=== PATIENT | female | born 1965 | race Caucasian/White ===

== ENCOUNTER 2021-10-29 10:47 | Emergency (ER) | payer SELFPAY ==
[2021-10-29 13:16] LABS: Urine Blood 3+ (Negative); Urine Glucose Negative (Negative); Urine Protein 1+ (Negative); Urine Specific Gravity >=1.030 (1.005-1.030)
[2021-10-29 16:18] LABS: Absolute Lymphocytes (CBC) 1.5 K/uL (0.7-4.9); Hematocrit 47.1 % (36.0-45.0); Lymphocytes % 25.4 % (15.3-44.8); RBC Red Blood Cell Count 5.33 M/uL (3.86-4.86)
[2021-10-29 16:26] LABS: BUN Blood Urea Nitrogen 12 mg/dL (7-18); Bicarbonate 27 mmol/L (21-32); Glucose Level 108 mg/dL (74-106); Potassium 3.4 mmol/L (3.5-5.1); Sodium Level 139 mmol/L (136-145)
[2021-10-29 16:31] LABS: SARS-COV-2 RT PCR POSITIVE (NEGATIVE)
--- NOTE | 2021-10-29 16:46 | ER ---
Nurse's Notes [facility] Name: Aleah Cassidy Age: 56 yrs Sex: Female : 1965 Arrival Date: 10/29/2021 Time: 10:49 Bed 10 Private MD: Diagnosis: Weakness;SARS-associated coronavirus as the cause of diseases classified elsewhere;Myalgia;Arthralgia;Confusion Presentation: 10/29 11:04 Chief complaint: Patient states: "Im not feeling well, haven't felt right or a little jh5 while. Im really weak, sore, and not thinking straight for the past several days". Coronavirus screen: Vaccine status: Patient reports being unvaccinated. Client denies travel out of the [place] in the last 14 days. Client presents with at least one sign or symptom that may indicate coronavirus-19. Standard/surgical mask placed on the client. Ebola Screen: Patient negative for fever greater than or equal to 101.5 degrees Fahrenheit, and additional compatible Ebola Virus Disease symptoms Patient denies exposure to infectious person. Patient denies travel to an Ebola-affected area in the 21 days before illness onset. No acute neurological deficit is noted. Pre-hospital glucose is not applicable to this patient. Initial Sepsis Screen: Does the patient meet any 2 criteria? No. Patient's initial sepsis screen is negative. Does the patient have a suspected source of infection? No. Patient's initial sepsis screen is negative. Risk Assessment: Do you want to hurt yourself or someone else? Patient reports no desire to harm self or others. Onset of symptoms was October 2021. 11:04 Method Of Arrival: Ambulatory [facility] 11:04 Acuity: AMIRAH 3 5 Triage Assessment: 11:08 The onset of the patients symptoms was. General: Appears in no apparent distress. jh5 comfortable, obese, well groomed, well developed, well nourished, Behavior is calm, cooperative, appropriate for age. Pain:. Neuro: No deficits noted. Reports weakness. 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 - Social history:: Smoking status: Patient reports the use of cigarette tobacco products, smokes one pack cigarettes per day. Patient uses alcohol, occasionally. Patient uses street drugs, marijuana. Screenin:35 Abuse screen: Denies threats or abuse. Denies injuries from another. Nutritional [facility] screening: No deficits noted. Tuberculosis screening: No symptoms or risk factors identified. Fall Risk None identified. Assessment: 11:35 Reassessment: Patient appears in no apparent distress at this time. see triage. [facility] 13:17 General: Appears in no apparent distress. Behavior is anxious. Neuro: Level of iw Consciousness is awake, alert, obeys commands, Oriented to person, place, time, situation, Moves all extremities. Full function. 16:43 Reassessment: Patient appears in no apparent distress at this time. Patient and/or iw family updated on plan of care and expected duration. Pain level reassessed. Patient is alert, oriented x 3, equal unlabored respirations, skin warm/dry/pink. Vital Signs: 11:04 BP 126 / 99; Pulse 101; Resp 16; Temp 98.3; Pulse Ox 99% ; Weight 83.91 kg; Height 5 [facility] ft. 5 in. (165.10 cm); 11:04 Body Mass Index 30.79 (83.91 kg, 165.10 cm) [facility] ED Course: 10:49 Patient arrived in ED. mr 11:08 Triage completed. [facility] 11:08 Arm band placed on right wrist. [facility] 11:35 Patient has correct armband on for positive identification. Bed in low position. Call [facility] light in reach. Side rails up X 1. 11:35 No provider procedures requiring assistance completed. [facility] 11:36 Ramiro Ward MD is Attending Physician. kdr 12:13 Rosmery Holt, RN is Primary Nurse. 16:08 Chem 7 Sent. 5 16:09 CBC with Diff Sent. 5 16:09 Initial lab(s) drawn, by nc, sent to lab. [facility] 17:00 Patient did not have IV access during this emergency room visit. Administered Medications: No medications were administered Outcome: 16:45 Discharge ordered by . kdr 17:01 Discharged to home ambulatory. iw 17:01 Condition: good 17:01 Discharge instructions given to patient, Instructed on discharge instructions, follow up and referral plans. Demonstrated understanding of instructions, follow-up care. 17:02 Patient left the ED. Signatures: Ramiro Ward MD MD [facility] Charlotte Win Irene, RN RN Pascale Luna [facility] Jolynn Jaquez RN RN jh5
--- NOTE | 2021-10-29 16:46 | EDPHYS ---
Physician Documentation [facility] Name: Aleah Cassidy Age: 56 yrs Sex: Female : 1965 Arrival Date: 10/29/2021 Time: 10:49 Bed 10 Private MD: ED Physician Ramiro Ward HPI: 10/29 17:04 This 56 yrs old Female presents to ER via Ambulatory with complaints of Weakness, Body kdr Aches. 17:05 Complains of generalized weakness aches and confusion over the last couple of weeks. kdr She feels like she is getting steadily worse over that period of time. She denies fever, chills or vomiting, she has had occasional nausea. She otherwise has no focal complaints. She denies known exposure to COVID. Onset: The symptoms/episode began/occurred gradually, 2 week(s) ago. Severity of symptoms: At their worst the symptoms were moderate just prior to arrival, today. The patient has not experienced similar symptoms in the past. The patient has not recently seen a physician. 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 - Social history:: Smoking status: Patient reports the use of cigarette tobacco products, smokes one pack cigarettes per day. Patient uses alcohol, occasionally. Patient uses street drugs, marijuana. ROS: 17:05 Constitutional: Negative for fever, chills, and weight loss, Eyes: Negative for injury, kdr pain, redness, and discharge, Neck: Negative for injury, pain, and swelling, Cardiovascular: Negative for chest pain, palpitations, and edema, Respiratory: Negative for shortness of breath, cough, wheezing, and pleuritic chest pain, Abdomen/GI: Negative for abdominal pain, nausea, vomiting, diarrhea, and constipation, Back: Negative for injury and pain, : Negative for injury, bleeding, discharge, and swelling, Skin: Negative for injury, rash, and discoloration, Psych: Negative for depression, anxiety, suicide ideation, homicidal ideation, and hallucinations, Allergy/Immunology: Negative for hives, rash, and allergies, Endocrine: Negative for neck swelling, polydipsia, polyuria, polyphagia, and marked weight changes, Hematologic/Lymphatic: Negative for swollen nodes, abnormal bleeding, and unusual bruising. 17:05 MS/extremity: Positive for erythema, pain, Negative for abrasion, bite, contusion, decreased range of motion, deformity, ecchymosis, erythema, pain, puncture, rash, swelling, tenderness. Exam: 17:05 Constitutional: This is a well developed, well nourished patient who is awake, alert, kdr and in no acute distress. Head/Face: Normocephalic, atraumatic. Eyes: Pupils equal round and reactive to light, extra-ocular motions intact. Lids and lashes normal. Conjunctiva and sclera are non-icteric and not injected. Cornea within normal limits. Periorbital areas with no swelling, redness, or edema. Neck: Trachea midline, no thyromegaly or masses palpated, and no cervical lymphadenopathy. Supple, full range of motion without nuchal rigidity, or vertebral point tenderness. No Meningismus. Chest/axilla: Normal chest wall appearance and motion. Nontender with no deformity. No lesions are appreciated. Cardiovascular: Regular rate and rhythm with a normal S1 and S2. No gallops, murmurs, or rubs. Normal PMI, no JVD. No pulse deficits. Respiratory: Lungs have equal breath sounds bilaterally, clear to auscultation and percussion. No rales, rhonchi or wheezes noted. No increased work of breathing, no retractions or nasal flaring. Back: No spinal tenderness. No costovertebral tenderness. Full range of motion. Skin: Warm, dry with normal turgor. Normal color with no rashes, no lesions, and no evidence of cellulitis. MS/ Extremity: Pulses equal, no cyanosis. Neurovascular intact. Full, normal range of motion. Neuro: Awake and alert, GCS 15, oriented to person, place, time, and situation. Cranial nerves II-XII grossly intact. Motor strength 5/5 in all extremities. Sensory grossly intact. Cerebellar exam normal. Normal gait. Psych: Awake, alert, with orientation to person, place and time. Behavior, mood, and affect are within normal limits. 17:05 Abdomen/GI: Inspection: abdomen appears normal, Bowel sounds: active, Palpation: soft, nontender, Minimal to no tenderness. Vital Signs: 11:04 BP 126 / 99; Pulse 101; Resp 16; Temp 98.3; Pulse Ox 99% ; Weight 83.91 kg; Height 5 [facility] ft. 5 in. (165.10 cm); 11:04 Body Mass Index 30.79 (83.91 kg, 165.10 cm) [facility] MDM: 16:45 Patient medically screened. kdr 17:09 Data reviewed: vital signs, nurses notes, lab test result(s), EKG, radiologic studies. kdr 10/29 11:39 Order name: COVID-19/FLU A+B (Document "Date of Onset" if Symptomatic); Complete Time: [facility] 16:35 10/29 11:13 Order name: Urine Dipstick-Ancillary (obtain specimen); Complete Time: 11:35 [facility] 10/29 13:16 Order name: Urine Dipstick-Ancillary; Complete Time: 14:05 EDMS 10/29 14:05 Interpretation: The patient is on her menstrual cycle, trace ketones and 1+ protein. kdr Otherwise nonacute. 10/29 15:57 Order name: CBC with Diff; Complete Time: 16:23 kdr 10/29 15:57 Order name: Chem 7; Complete Time: 16:28 kdr Administered Medications: No medications were administered Disposition Summary: 10/29/21 16:45 Discharge Ordered Location: Home kdr Problem: an ongoing problem kdr Symptoms: are unchanged kdr Condition: Stable kdr Diagnosis - Weakness kdr - SARS-associated coronavirus as the cause of diseases classified elsewhere kdr - Myalgia kdr - Arthralgia kdr - Confusion kdr Followup: kdr - With: Private Physician - When: 2 - 3 days - Reason: If symptoms return, Further diagnostic work-up, Recheck today's complaints, Continuance of care, Re-evaluation by your physician Discharge Instructions: - Discharge Summary Sheet kdr - Musculoskeletal Pain kdr - Muscle Pain, Adult kdr - Fatigue kdr - Weakness, [id number] kdr - COVID-19 kdr - Things to Know about the COVID-19 Pandemic - [facility] kdr - 10 Things You Can Do to Manage Your COVID-19 Symptoms at Home - [facility] kdr - Viral Illness, Adult kdr - COVID-19: Quarantine vs. Isolation - [facility] kdr - Prevent the Spread of COVID-19 if You Are Sick - [facility] kdr Forms: - Medication Reconciliation Form kdr - Thank You Letter kdr Signatures: Dispatcher [employer] EDMS Rittger, Ramiro, MD MD kdr Leonid, Jolynn, RN RN jh5
[2021-10-29 17:42] VITALS: BP 126/99; TEMP 98.3; O2SAT 99
== END 2021-10-29 17:02 | disposition home or self-care (01) ==
LOC: ER 10:47
DX: U07.1 COVID-19 (principal); M79.10 Myalgia, unspecified site; M25.50 Pain in unspecified joint; R41.0 Disorientation, unspecified; F17.210 Nicotine dependence, cigarettes, uncomplicated
CPT/HCPCS: 0240U; 36415; 80048; 81003; 85025; 99283

== ENCOUNTER 2021-11-21 12:47 | Emergency (ER) | payer OTHER, SELFPAY ==
--- OUTSIDE RECORDS SUMMARY | 2021-11-21 12:50 | XMS REPORT | Continuity of Care Document ---
:1965 Author Organization [facility] t Address [address] [place] [address] Dr. Farias [address] [place] [id number] Care Team Providers Name Role Phone Unavailable Unavailable Unavailable Problems This patient has no known problems. Allergies, Adverse Reactions, Alerts This patient has no known allergies or adverse reactions. Medications This patient has no known medications. Procedures This patient has no known procedures. Results This patient has no known results.
[2021-11-21 14:42] LABS: Urine Blood Trace-intact (Negative); Urine Glucose Negative (Negative); Urine Protein 1+ (Negative); Urine Specific Gravity 1.025 (1.005-1.030); Urine pH 6.5 (5.0-7.0)
[2021-11-21 15:06] LABS: Hematocrit 45.5 % (36.0-45.0); Lymphocytes % 18.2 % (15.3-44.8); MPV 8.9 fL (7.6-11.3); RBC Red Blood Cell Count 5.07 M/uL (3.86-4.86)
[2021-11-21] MEDS ORDERED: NA CHLORIDE 0.9% 1,000 ML ONE (15:11)
[2021-11-21 15:12] LABS: Protime INR 1.01
[2021-11-21 15:24] LABS: Barbiturates NEGATIVE (NEGATIVE); Benzodiazepines NEGATIVE (NEGATIVE); Cocaine NEGATIVE (NEGATIVE); METHAMPHETAM NEGATIVE (NEGATIVE); Methadone NEGATIVE (NEGATIVE); Opiates NEGATIVE (NEGATIVE); Phencyclidine NEGATIVE (NEGATIVE); THC Cannibis POSITIVE (NEGATIVE)
[2021-11-21 15:25] LABS: ALT/SGPT 19 U/L (12-78); AST/SGOT 8 U/L (15-37); Albumin 3.2 g/dL (3.4-5.0); Alkaline Phosphatase 64 U/L (45-117); BUN Blood Urea Nitrogen 7 mg/dL (7-18); Bicarbonate 30 mmol/L (21-32); Bilirubin Direct < 0.1 mg/dL (0-0.2); Bilirubin Total 0.3 mg/dL (0.2-1.0); Glucose Level 111 mg/dL (74-106); Potassium 3.1 mmol/L (3.5-5.1); Protein, Total 6.8 g/dL (6.4-8.2); Sodium Level 139 mmol/L (136-145)
--- NOTE | 2021-11-21 16:19 | EDPHYS ---
Physician Documentation [facility] Name: Aleah Cassidy Age: 56 yrs Sex: Female : 1965 Arrival Date: 11/21/2021 Time: 12:51 Bed 12 Private MD: ED Physician Fay Loya HPI: 11/21 14:49 This 56 yrs old Female presents to ER via Ambulatory with complaints of Psych Eval. pm1 14:49 The patient presents to the emergency department with depression, over unknown pm1 circumstances, patient has not been taking her medications since they do not seem to work. Onset: The symptoms/episode began/occurred chronic issue. Past psychiatric history: Prior diagnosis: bipolar disorder, schizophrenia, Psychiatric medications include: none, Primary psychiatric physician: the patient does not have a primary psychiatric physician. Associated signs and symptoms: Pertinent negatives: homicidal ideation, suicide ideation. Severity of symptoms: in the emergency department the symptoms are worse. The patient has experienced similar episodes in the past, chronically. The patient has not recently seen a physician. 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 - Social history:: Smoking status: Patient reports the use of cigarette tobacco products, smokes two packs cigarettes per day. ROS: 14:49 Cardiovascular: Negative for chest pain, palpitations, and edema, Respiratory: Negative pm1 for shortness of breath, cough, wheezing, and pleuritic chest pain, Abdomen/GI: Negative for abdominal pain, nausea, vomiting, diarrhea, and constipation, Back: Negative for injury and pain, MS/Extremity: Negative for injury and deformity, Skin: Negative for injury, rash, and discoloration, Neuro: Negative for headache, weakness, numbness, tingling, and seizure. 14:49 Constitutional: Positive for poor PO intake. 14:49 Psych: Positive for depression, insomnia, decreased appetite. 14:49 All other systems are negative. Exam: 14:49 Constitutional: This is a well developed, well nourished patient who is awake, alert, pm1 and in no acute distress. Head/Face: Normocephalic, atraumatic. 14:49 Abdomen/GI: Soft, non-tender, with normal bowel sounds. No distension or tympany. No guarding or rebound. No evidence of tenderness throughout. Back: No spinal tenderness. No costovertebral tenderness. Full range of motion. Skin: Warm, dry with normal turgor. Normal color with no rashes, no lesions, and no evidence of cellulitis. MS/ Extremity: Pulses equal, no cyanosis. Neurovascular intact. Full, normal range of motion. 14:49 Cardiovascular: Exam negative for acute changes, Rate: normal, Rhythm: regular, Pulses: no pulse deficits are appreciated. 14:49 Respiratory: Exam negative for acute changes, respiratory distress, shortness of breath. 14:49 Neuro: Orientation: is normal, Mentation: is normal, Motor: is normal, moves all fours. 14:49 Psych: Behavior/mood is depressed, Affect is flat, Oriented to person, place, time, Patient has no thoughts/intents to harm self or others. Delusions/hallucinations are not present. Vital Signs: 13:04 BP 144 / 116; Pulse 94; Resp 18; Temp 98.6; Pulse Ox 99% ; Weight 70.31 kg; Height 5 jl7 ft. 5 in. (165.10 cm); Pain 0/10; 16:16 BP 154 / 97; Pulse 77; Resp 16; Pulse Ox 97% on R/A; iw 13:04 Body Mass Index 25.79 (70.31 kg, 165.10 cm) jl7 MDM: 14:38 Patient medically screened. ma2 16:16 Data reviewed: vital signs. Data interpreted: Pulse oximetry: on room air is 97 %. pm1 Interpretation: normal. 16:16 Counseling: I had a detailed discussion with the patient and/or guardian regarding: the pm1 historical points, exam findings, and any diagnostic results supporting the discharge/admit diagnosis, lab results, the need for outpatient follow up, a family practitioner, a psychiatrist, to return to the emergency department if symptoms worsen or persist or if there are any questions or concerns that arise at home. 16:34 Physician consultation: Joe Lawrence MD was called at 16:34, left message for pm1 availability to treat patient on a outpatient basis. 17:30 Physician consultation: Joe Lawrence MD regarding patient's condition, and will pm1 see patient in office, will look out for her call tomorrow in the office so she can be treated. Informed the patient to call his office tomorrow. 11/21 14:42 Order name: Urine Dipstick-Ancillary; Complete Time: 15:32 EDMS 11/21 14:49 Order name: Acetaminophen; Complete Time: 15:32 pm1 11/21 14:49 Order name: Basic Metabolic Panel; Complete Time: 15:32 pm1 11/21 14:49 Order name: CBC with Diff; Complete Time: 15:32 pm1 11/21 14:49 Order name: ETOH Level; Complete Time: 15:32 pm1 11/21 14:49 Order name: Hepatic Function; Complete Time: 15:32 pm1 11/21 14:49 Order name: PT-INR; Complete Time: 15:32 pm1 11/21 14:49 Order name: Ptt, Activated; Complete Time: 15:32 pm1 11/21 14:49 Order name: Salicylate; Complete Time: 15:41 pm1 11/21 14:49 Order name: Urine Drug Screen; Complete Time: 15:32 pm1 08 14:49 Order name: EKG; Complete Time: 14:49 pm1 11/21 14:49 Order name: EKG - Nurse/Tech; Complete Time: 16:06 pm1 11/21 14:49 Order name: IV Saline Lock; Complete Time: 15:16 pm1 11/21 14:49 Order name: Labs collected and sent; Complete Time: 15:16 pm1 11/21 14:49 Order name: Urine Dipstick-Ancillary (obtain specimen); Complete Time: 15:16 pm1 Administered Medications: 15:16 Drug: NS 0.9% 1000 ml Route: IV; Rate: 1000 ml; Site: right antecubital; iw 16:30 Follow up: IV Status: Completed infusion iw Disposition Summary: 11/21/21 16:18 Discharge Ordered Location: Home pm1 Problem: new pm1 Symptoms: have improved pm1 Condition: Stable pm1 Diagnosis - Other depressive episodes pm1 Followup: pm1 - With: Emergency Department - When: As needed - Reason: Worsening of condition Followup: pm1 - With: Private Physician - When: 2 - 3 days - Reason: Recheck today's complaints, Continuance of care, Re-evaluation by your physician Followup: pm1 - With: Joe Lawrence MD - When: 2 - 3 days - Reason: Recheck today's complaints, Continuance of care, Re-evaluation by your physician Discharge Instructions: - Discharge Summary Sheet pm1 - Managing Depression, Adult pm1 Forms: - Medication Reconciliation Form pm1 - Thank You Letter pm1 - Antibiotic Education pm1 - Prescription Opioid Use pm1 Signatures: Dispatcher [employer] EDRosmery Maldonado RN RN iw Marinas, Patrick, NP [employer] pm1 Angelia Bowden RN RN jl7 Fay Loya MD MD ma2
--- NOTE | 2021-11-21 16:19 | ER ---
[facility] Name: Aleah Cassidy Age: 56 yrs Sex: Female : 1965 Arrival Date: 11/21/2021 Time: 12:51 Bed 12 Private MD: Diagnosis: Other depressive episodes Presentation: 11/21 13:04 Chief complaint: Patient states: "I don't really know what's going on with me". per jl7 friend; Went to [facility] nov 10 and since has gotten worse and can't function without being told by her roommate; room mate things she has slurred speech and staring off into space at times with glazed eyes. Coronavirus screen: Vaccine status: Patient reports being unvaccinated. Client denies travel out of the [place] in the last 14 days. Ebola Screen: Patient negative for fever greater than or equal to 101.5 degrees Fahrenheit, and additional compatible Ebola Virus Disease symptoms Patient denies exposure to infectious person. Patient denies travel to an Ebola-affected area in the 21 days before illness onset. Initial Sepsis Screen: Does the patient meet any 2 criteria? No. Patient's initial sepsis screen is negative. Does the patient have a suspected source of infection? No. Patient's initial sepsis screen is negative. Risk Assessment: Do you want to hurt yourself or someone else? Patient reports no desire to harm self or others. Onset of symptoms. 13:04 Method Of Arrival: Ambulatory [facility] 13:04 Acuity: AMIRAH 4 jl7 Triage Assessment: 13:09 General: Appears uncomfortable, obese, unkempt, Behavior is calm, cooperative, flat. jl7 Pain: Denies pain. 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 - Social history:: Smoking status: Patient reports the use of cigarette tobacco products, smokes two packs cigarettes per day. Screenin:02 Nutritional screening: No deficits noted. Tuberculosis screening: No symptoms or risk iw factors identified. Assessment: 15:00 General: Appears in no apparent distress. Behavior is calm, cooperative. General: pt iw states she is homeless and has been under a lot of stress for past month, feels confused, not like her normal self, was seen here last month with similar symptoms, had COVID at that time, pt denies suicidal ideation at this time . Neuro: Level of Consciousness is awake, alert, obeys commands, Moves all extremities. Respiratory: Airway is patent Respiratory effort is even, unlabored. Derm: Skin is intact, is healthy with good turgor. Musculoskeletal: Range of motion: intact in all extremities. 16:06 Reassessment: Patient appears in no apparent distress at this time. Patient and/or iw family updated on plan of care and expected duration. Pain level reassessed. Patient is alert, oriented x 3, equal unlabored respirations, skin warm/dry/pink. Vital Signs: 13:04 BP 144 / 116; Pulse 94; Resp 18; Temp 98.6; Pulse Ox 99% ; Weight 70.31 kg; Height 5 jl7 ft. 5 in. (165.10 cm); Pain 0/10; 16:16 BP 154 / 97; Pulse 77; Resp 16; Pulse Ox 97% on R/A; iw 13:04 Body Mass Index 25.79 (70.31 kg, 165.10 cm) jl7 ED Course: 12:51 Patient arrived in ED. ds1 13:09 Triage completed. jl7 13:09 Arm band placed on right wrist. jl7 14:38 Fay Loya MD is Attending Physician. ma2 14:38 Dick Yoo, ADELINA is PHCP. pm1 14:44 Rosmery Holt, RN is Primary Nurse. iw 14:59 Initial lab(s) drawn, by ga. Inserted saline lock: 22 gauge in right antecubital area, iw using aseptic technique. Blood collected. 16:06 Urine collected: clean catch specimen, cloudy, EKG done, by ED staff, reviewed by Jl Loya MD COVID swab sent to lab. 16:07 Patient has correct armband on for positive identification. Bed in low position. Call 5 light in reach. Side rails up X 1. Warm blanket given. Pulse ox on. NIBP on. 16:36 Joe Lawrence MD is Referral Physician. pm1 Administered Medications: 15:16 Drug: NS 0.9% 1000 ml Route: IV; Rate: 1000 ml; Site: right antecubital; iw 16:30 Follow up: IV Status: Completed infusion iw Outcome: 16:18 Discharge ordered by . pm1 17:05 Patient left the ED. iw Signatures: Abbey El ds1 Rosmery Holt RN RN iw Dick Yoo, ADELINA URBAN DESIGNER pm1 Pascale Luna 5 Angelia Bowden RN RN jl7 Fay Loya MD MD ca2
[2021-11-21 17:40] VITALS: TEMP 98.6
[2021-11-21 17:42] VITALS: BP 154/97; O2SAT 97
--- NOTE | 2021-11-22 12:48 | EKG ---
Test Date: 2021-11-21 Test Time: 16:01:36 [employer] Operator: AMANDA MEASUREMENT RESULTS: Intervals: Rate: 79 MT: 146 QRSD: 88 QT: 392 QTc: 449 [place]: P: 68 MT: 146 QRS: 62 T: 32 INTERPRETIVE STATEMENTS: Normal sinus rhythm Nonspecific ST abnormality Abnormal ECG No previous ECG available for comparison Electronically Signed On 11-22-21 12:46:15 CRIB ATTENDANT by Mitch Hayden
--- NOTE | 2021-11-22 12:48 | EKG ---
Test Date: 2021-11-21 Test Time: 16:02:14 3Rd Pressman: AMANDA MEASUREMENT RESULTS: Intervals: Rate: 77 MS: 142 QRSD: 88 QT: 396 QTc: 448 [place]: P: 71 MS: 142 QRS: 64 T: 32 INTERPRETIVE STATEMENTS: Normal sinus rhythm Normal ECG Compared to ECG 11/21/2021 16:01:36 ST (T wave) deviation no longer present Electronically Signed On 11-22-21 12:46:13 INSPECTOR MATERIAL DISPOSITION by Mitch Hayden
== END 2021-11-21 17:05 | disposition home or self-care (01) ==
LOC: ER 12:47
DX: F32.89 Other specified depressive episodes (principal); F17.210 Nicotine dependence, cigarettes, uncomplicated; Z88.8 Allergy status to other drugs, medicaments and biological substances
CPT/HCPCS: 93005 ×2; 85025; 80048; 36415; 80320; 80329 ×2; 85610; 80076; 85730; 81003; 80307; 96360; 99284; J7030

== ENCOUNTER 2022-03-15 18:11 | Inpatient (IN) | payer OTHER ==
--- OUTSIDE RECORDS SUMMARY | 2022-03-15 18:13 | XMS REPORT | Continuity of Care Document ---
:1965 Author Organization [facility] t Address [address] [place] [address] Dr. Farias [address] [place] [id number] Care Team Providers Name Role Phone Unavailable Unavailable Unavailable Problems This patient has no known problems. Allergies, Adverse Reactions, Alerts This patient has no known allergies or adverse reactions. Medications This patient has no known medications. Procedures This patient has no known procedures. Results This patient has no known results.
[2022-03-15 19:07] LABS: Absolute Lymphocytes (CBC) 1.2 K/uL (0.7-4.9); Hematocrit 39.9 % (36.0-45.0); Lymphocytes % 7.2 % (15.3-44.8); MCV 91.3 fL (80-100); MPV 9.4 fL (7.6-11.3); RBC Red Blood Cell Count 4.37 M/uL (3.86-4.86)
[2022-03-15 19:25] LABS: Albumin 2.9 g/dL (3.4-5.0); Bilirubin Total 0.4 mg/dL (0.2-1.0); Potassium 3.2 mmol/L (3.5-5.1); Protein, Total 6.6 g/dL (6.4-8.2)
--- NOTE | 2022-03-15 20:38 | EDPHYS ---
Physician Documentation [facility] Name: Aleah Cassidy Age: 56 yrs Sex: Female : 1965 Arrival Date: 03/15/2022 Time: 18:12 Bed 12 Private MD: ED Physician Donny Solano HPI: 03/15 18:32 This 56 yrs old Female presents to ER via Ambulatory with complaints of Dog Bite. jmm 18:32 The patient was bitten on the right arm, left arm and left leg. Onset: The jmm symptoms/episode began/occurred acutely, 3 day(s) ago. Secondary to the bite the patient reports This is a 56 year old female with a history of bipolar, schizophrenia that presents to the ED with complaints of swelling to the left lower leg. This occurred after breaking up a dog fight approx 3 day ago. . 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 Last tetanus immunization: unknown. - Social history:: Smoking status: Patient reports the use of cigarette tobacco products, smokes one pack cigarettes per day. ROS: 18:32 Constitutional: Negative for fever, chills, and weight loss, Cardiovascular: Negative jmm for chest pain, palpitations, and edema, Respiratory: Negative for shortness of breath, cough, wheezing, and pleuritic chest pain. 18:32 MS/extremity: Positive for injury or acute deformity. 18:32 All other systems are negative. Exam: 18:32 Constitutional: This is a well developed, well nourished patient who is awake, alert, jmm and in no acute distress. Head/Face: atraumatic. Eyes: EOMI, no conjunctival erythema appreciated ENT: Moist Mucus Membranes Neck: Trachea midline, Supple Chest/axilla: Normal chest wall appearance and motion. Cardiovascular: Regular rate and rhythm. No edema appreciated Respiratory: Normal respirations, no respiratory distress appreciated Abdomen/GI: Non distended, soft Back: Normal ROM 18:32 Skin: laceration noted to the left lower leg, surrounding erythema noted to the lower extremity, ttp. 18:32 Neuro: Orientation: is normal, Mentation: is normal, Memory: is normal. 18:32 Psych: Behavior/mood is pleasant, cooperative. Vital Signs: 18:23 BP 135 / 92; Pulse 99; Resp 17; Temp 100.8(TE); Pulse Ox 98% on R/A; Weight 74.84 kg; tw2 Height 5 ft. 3 in. (160.02 cm); Pain 7/10; 19:59 BP 139 / 86; Pulse 98; Resp 18; Pulse Ox 99% on R/A; ld1 21:26 BP 133 / 82; Pulse 93; Resp 18; Pulse Ox 99% on R/A; ld1 18:23 Body Mass Index 29.23 (74.84 kg, 160.02 cm) tw2 MDM: 18:32 Patient medically screened. samantha 20:34 Data reviewed: vital signs, nurses notes. Counseling: I had a detailed discussion with ankur the patient and/or guardian regarding: the historical points, exam findings, and any diagnostic results supporting the discharge/admit diagnosis, lab results, the need for further work-up and treatment in the hospital. 22:30 ED course: I discussed the patient with Chiara Frost whom accepted the patient to Dr. ankur Pearl's service. . 06 18:41 Order name: CBC with Diff; Complete Time: 19:11 [facility] 03/15 18:41 Order name: CMP; Complete Time: 19:26 [facility] 03/15 18:42 Order name: Blood Culture Adult (2) [facility] 03/15 18:42 Order name: Procalcitonin; Complete Time: 20:08 [facility] 03/15 18:42 Order name: Lactate; Complete Time: 19:31 [facility] 03/15 20:47 Order name: COVID-19 SARS RT PCR (Document "Date of Onset" if Symptomatic); Complete ld1 Time: 22:09 03/15 18:41 Order name: Saline Lock; Complete Time: 18:57 [facility] 03/15 18:41 Order name: Tib Fib Left XRAY; Complete Time: 20:58 [facility] 03/15 18:41 Order name: Hand Left 3 View XRAY; Complete Time: 20:58 [facility] Administered Medications: 19:58 Drug: Zosyn (piperacillin-tazobactam) 3.375 grams Route: IVPB; Infused Over: 60 mins; ld1 Site: right antecubital; 20:49 Follow up: Response: No adverse reaction; IV Status: Completed infusion; IV Intake: ld1 100ml Disposition Summary: 03/15/22 20:37 Hospitalization Ordered Hospitalization Status: Inpatient Admission [facility] Provider: Brijesh Pearl Location: Telemetry/MedSur (Inpatient) [facility] Condition: Stable [facility] Problem: new jmm Symptoms: are unchanged [facility] Bed/Room Type: Standard [facility] Room Assignment: 207(03/15/22 22:10) mw Diagnosis - Dog Bite - Cellulitis of the Left Lower Leg [facility] Forms: - Medication Reconciliation Form [facility] - SBAR form [facility] Addendum: 03/30/2022 13:47 Co-signature as Attending Physician, Donny Solano MD I agree with the assessment and c lanier plan of care. Signatures: Dispatcher [employer] EDAnnmarie Jarquin RN Donny Wagner MD MD cha Mickail, Joel, PA PA [facility] Lenka Maria RN RN tw2 Elisabet Coyle RN RN ld1 Corrections: (The following items were deleted from the chart) 03/15 22:10 20:37 [facility]
--- NOTE | 2022-03-15 20:38 | ER ---
Nurse's Notes [facility] Name: Aleah Cassidy Age: 56 yrs Sex: Female : 1965 Arrival Date: 03/15/2022 Time: 18:12 Bed 12 Private MD: Diagnosis: Dog Bite - Cellulitis of the Left Lower Leg Presentation: 03/15 18:23 Chief complaint: Patient states: i broke up a fight between 2 dogs either Saturday or saturday. bitten on the right arm and left ankle. dogs were vaccinated. not report. my LEFT ankle is swelling. i have been trying to treat it myself but friend made me come up here to get checked out. Coronavirus screen: Client presents with at least one sign or symptom that may indicate coronavirus-19. Ebola Screen: Patient denies travel to an Ebola-affected area in the 21 days before illness onset. Initial Sepsis Screen: Does the patient meet any 2 criteria? HR > 90 bpm. Does the patient have a suspected source of infection? Yes: Skin breakdown/wound. Risk Assessment: Do you want to hurt yourself or someone else? Patient reports no desire to harm self or others. Onset of symptoms was March 15, 2022. 18:23 Method Of Arrival: Ambulatory tw2 18:23 Acuity: AMIRAH 3 tw2 Triage Assessment: 18:26 Bite description: bite sustained to dorsal aspect of right forearm by a dog, animal tw2 information: vaccination(s) is current. General: Appears unkempt, Behavior is calm, cooperative, appropriate for age. Pain: Complains of pain in left ankle. 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 Last tetanus immunization: unknown. - Social history:: Smoking status: Patient reports the use of cigarette tobacco products, smokes one pack cigarettes per day. Screenin:31 Abuse screen: Denies threats or abuse. Nutritional screening: No deficits noted. tw2 Tuberculosis screening: No symptoms or risk factors identified. Fall Risk None identified. Assessment: 21:26 Reassessment: See triage assessment. ld1 Vital Signs: 18:23 BP 135 / 92; Pulse 99; Resp 17; Temp 100.8(TE); Pulse Ox 98% on R/A; Weight 74.84 kg; tw2 Height 5 ft. 3 in. (160.02 cm); Pain 7/10; 19:59 BP 139 / 86; Pulse 98; Resp 18; Pulse Ox 99% on R/A; ld1 21:26 BP 133 / 82; Pulse 93; Resp 18; Pulse Ox 99% on R/A; ld1 18:23 Body Mass Index 29.23 (74.84 kg, 160.02 cm) tw2 ED Course: 18:12 Patient arrived in ED. as 18:25 Triage completed. tw2 18:27 Arm band placed on. tw2 18:28 Bed in low position. Call light in reach. tw2 18:31 Nestor Mcnamara PA is PHCP. [facility] 18:31 Donny Solano MD is Attending Physician. [facility] 18:40 Elisabet Coyle, INDERJIT is Primary Nurse. ld1 18:57 Inserted saline lock: 20 gauge in right antecubital area, using aseptic technique. ld1 Blood collected. 20:26 Tib Fib Left XRAY In Process Unspecified. EDMS 20:26 Hand Left 3 View XRAY In Process Unspecified. EDMS 20:37 Brijesh Pearl is Hospitalizing Provider. jmm 20:49 COVID-19 SARS RT PCR (Document "Date of Onset" if Symptomatic) Sent. ld1 20:58 COVID-19 SARS RT PCR (Document "Date of Onset" if Symptomatic) Sent. 21:26 No provider procedures requiring assistance completed. ld1 22:20 Patient admitted, IV remains in place. ld1 Administered Medications: 19:58 Drug: Zosyn (piperacillin-tazobactam) 3.375 grams Route: IVPB; Infused Over: 60 mins; ld1 Site: right antecubital; 20:49 Follow up: Response: No adverse reaction; IV Status: Completed infusion; IV Intake: ld1 100ml Medication: 21:26 VIS not applicable for this client. ld1 Intake: 20:49 IV: 100ml; Total: 100ml. ld1 Outcome: 20:37 Decision to Hospitalize by Provider. ankur 22:20 Admitted to Med/surg via wheelchair, room 207, Report called to INDERJIT Parada ld1 22:20 Condition: stable 22:20 Instructed on the need for admit. 22:47 Patient left the ED. ld1 Signatures: Dispatcher [employer] EDMS Nestor Mcnamara PA PA jmm Martinez, Amelia as Wise, Tara, RN RN tw2 Elisabet Coyle RN RN ld1 Rohini Kong
--- NOTE | 2022-03-15 20:53 | RAD REPORT ---
EXAM DESCRIPTION: RAD -Hand Left 3 View - 03/15/2022 8:24 pm CLINICAL HISTORY: Left hand pain status post injury FINDINGS: No fracture or dislocation is seen. A radiopaque foreign body is not noted
--- NOTE | 2022-03-15 20:55 | RAD REPORT ---
EXAM DESCRIPTION: Fransico Carbone Left03/15/2022 8:24 pm CLINICAL HISTORY: Left leg pain status post injury FINDINGS: No fracture is seen Soft tissue swelling. A radiopaque foreign body not noted
[2022-03-15] MEDS ORDERED: ONDANSETRON 4 MG/2 ML VIAL IV PRN (22:24)
[2022-03-15] MEDS ORDERED: ACETAMINOPHEN 500 MG TAB PO PRN (22:24)
--- NOTE | 2022-03-15 23:22 | P.HP ---
Certification for Inpatient Patient admitted to: Inpatient With expected LOS: <2 Midnights Patient will require the following post-hospital care: None Practitioner: I am a practitioner with admitting privileges, knowledge of patient current condition, hospital course, and medical plan of care. Services: Services provided to patient in accordance with Admission requirements found in Title 42 Section 412.3 of the Code of Federal Regulations Patient History Date of Service: 03/16/22 Reason for admission: Cellulitus LLE History of Present Illness: Patient is a 56-year-old female with schizophrenia who presented to the ED with complaints of left lower leg infection. Patient states that a few days ago, she broke up a fight between 2 dogs and sustained injuries to her left lower leg, left and right arms. She reports a combination of bites and scratches. She believes that both of the dogs are vaccinated. Patient was initially febrile at 100.8 Fahrenheit upon presentation to the ED. Labs significant for WBC 16, potassium 3.2, lactic acid and Pro-Chriss WNL. X-rays negative for fracture or foreign body. She was started on Zosyn. ED provider wishes to admit patient for further evaluation and treatment. Allergies hydrocortisone [From Cortizone-10] Allergy (Verified 03/15/22 22:19) Hives/Rash surgical tape Allergy (Uncoded 03/15/22 22:19) Hives/Rash Home medications list reviewed: Yes - Past Medical/Surgical History Diabetic: No -: Schizophrenia -: Bipolar Disorder -: Fibromyalgia -: Depressive Disorder -: Right Hip Replacement Psychosocial/ Personal History: Patient lives at home with a roommate. - Family History Mother -: Heart disease, Hypertension, Diabetes, Stroke, Cancer Notes: ovarian cancer Father -: Heart disease, Hypertension - Social History Smoking Status: Current every day smoker Alcohol use: No CD- Drugs: No Caffeine use: Yes Place of Residence: Home Review of Systems 10-point ROS is otherwise unremarkable Musculoskeletal: Leg Pain Physical Examination - Vital Signs Temperature: 98.1 F Blood Pressure: 118/69 Pulse: 79 Respirations: 16 Pulse Ox (%): 100 - Physical Exam General: Alert, In no apparent distress HEENT: Atraumatic, PERRLA, EOMI, Sclerae nonicteric Neck: Supple, 2+ carotid pulse no bruit, No LAD, Without JVD or thyroid abnormality Respiratory: Clear to auscultation bilaterally, Normal air movement Cardiovascular: Regular rate/rhythm, Normal S1 S2 Gastrointestinal: Normal bowel sounds, No tenderness Musculoskeletal: No tenderness Integumentary: Other (Cellulitus LLE, puncture wound noted to L medial ankle) Neurological: Normal speech, Normal strength at 5/5 x4 extr, Sensation intact, Normal affect - Studies Laboratory Data (last 24 hrs) 03/15/22 18:53: Sodium 138, Potassium 3.2 L, BUN 11, Creatinine 0.69, Glucose 109 H, Total Bilirubin 0.4, AST 4 L, ALT 12, Alkaline Phosphatase 55 03/15/22 18:53: WBC 16.0 H, Hgb 12.9, Hct 39.9, Plt Count 246 Assessment and Plan - Problems (Diagnosis) (1) Cellulitis of leg without foot, left Current Visit: Yes Status: Acute (2) Dog bite of left lower leg with infection Current Visit: Yes Status: Acute Qualifiers: Encounter type: initial encounter Qualified Code(s): S81.852A - Open bite, left lower leg, initial encounter; L08.9 - Local infection of the skin and subcutaneous tissue, unspecified; W54.0XXA - Bitten by dog, initial encounter (3) Hypokalemia Current Visit: Yes Status: Acute (4) Schizophrenia Current Visit: No Status: Chronic Qualifiers: Schizophrenia type: unspecified Qualified Code(s): F20.9 - Schizophrenia, unspecified - Plan -Admit patient for IV antibiotics, zosyn, and follow blood cultures -Wound does not appear to need surgical wash out at this time -WBC elevated at 16. Lactic acid and procal WNL. Trend CBC -Replete potassium as per protocol. -Fever has resolved. Tylenol PRN. -Wound care consulted -Lovenox for VTE prophylaxis -Reconcile and continue home medications -Full Code Discharge Plan: Home Plan to discharge in: 48 Hours - Advance Directives Does patient have a Living Will: No Does patient have a Durable POA for Healthcare: No - Code Status/Comfort Care Code Status Assessed: Yes (Full) Critical Care: No Time Spent Managing Pts Care (In Minutes): 50
[2022-03-15 23:27] VITALS: O2SAT 100; BMI 26.9
[2022-03-15] MEDS: MORPHINE 2 MG/ML SYR IV PRN (23:29)
[2022-03-16] MEDS: PIPER TAZO 3.375 GM in NA CHLORIDE 0.9% 100 ML IV SCH ×3 (00:50→17:58)
[2022-03-16 01:10] LABS: Urine Appearance CLEAR (Clear); Urine Bilirubin NEGATIVE (Negative); Urine Color YELLOW (Yellow); Urine Glucose NEGATIVE (Negative)
[2022-03-16 01:11] LABS: Urine Bacteria 20-50 /HPF (<20); Urine Blood 2+ (Negative); Urine Microscopic Reflex ORDER UMIC; Urine Mucus 2+ /HPF (NONE SEEN); Urine Protein NEGATIVE (Negative); Urine Urobilinogen 0.2 mg/dL (0.2-1.0)
[2022-03-16] MEDS ORDERED: POTASSIUM 25 MEQ EFFERV TAB PO ONE (02:51)
[2022-03-16] MEDS: MORPHINE 2 MG/ML SYR IV PRN (03:32)
[2022-03-16 06:14] LABS: Absolute Lymphocytes (CBC) 2.5 K/uL (0.7-4.9); Hematocrit 36.5 % (36.0-45.0); Lymphocytes % 17.4 % (15.3-44.8); MCV 91.3 fL (80-100); MPV 9.5 fL (7.6-11.3)
[2022-03-16 06:20] LABS: AST/SGOT 4 U/L (15-37); Albumin 2.4 g/dL (3.4-5.0); Alkaline Phosphatase 46 U/L (45-117); BUN Blood Urea Nitrogen 7 mg/dL (7-18); Bicarbonate 26 mmol/L (21-32); Bilirubin Total 0.4 mg/dL (0.2-1.0); Glomerular Filtration Rate 111 ml/min (=/>90); Glucose Level 103 mg/dL (74-106); Potassium 3.9 mmol/L (3.5-5.1); Protein, Total 5.6 g/dL (6.4-8.2); Sodium Level 139 mmol/L (136-145)
[2022-03-16 06:21] LABS: ALT/SGPT < 10 U/L (12-78)
[2022-03-16] MEDS: ENOXAPARIN 40 MG/0.4 ML SQ SCH (09:14)
--- NOTE | 2022-03-16 12:16 | P.PN ---
Subjective Date of Service: 03/16/22 Chief Complaint: Cellulitus LLE Complaining of pain in the left leg. Left leg is swollen with mild erythema. No fever today. Physical Examination - Vital Signs Temperature: 98.2 F Blood Pressure: 107/64 Pulse: 67 Respirations: 18 Pulse Ox (%): 97 - Physical Exam General: Alert, In no apparent distress, Oriented x3 HEENT: Mucous membr. moist/pink Neck: JVD not distended Respiratory: Clear to auscultation bilaterally, Normal air movement Cardiovascular: Regular rate/rhythm, Normal S1 S2, No murmurs Gastrointestinal: Normal bowel sounds, Soft and benign, Non-distended, Tenderness (Right leg) Musculoskeletal: Other (Open laceration on the lateral and distal aspect of the left leg) Integumentary: Erythema (Left leg) Neurological: Normal speech, Normal strength at 5/5 x4 extr - Studies Laboratory Data (last 24 hrs) 03/15/22 18:53: Sodium 138, Potassium 3.2 L, BUN 11, Creatinine 0.69, Glucose 109 H, Total Bilirubin 0.4, AST 4 L, ALT 12, Alkaline Phosphatase 55 03/15/22 18:53: WBC 16.0 H, Hgb 12.9, Hct 39.9, Plt Count 246 Assessment And Plan - Current Problems (Diagnosis) (1) Cellulitis of leg without foot, left Current Visit: Yes Status: Acute (2) Dog bite of left lower leg with infection Current Visit: Yes Status: Acute Qualifiers: Encounter type: initial encounter Qualified Code(s): S81.852A - Open bite, left lower leg, initial encounter; L08.9 - Local infection of the skin and subcutaneous tissue, unspecified; W54.0XXA - Bitten by dog, initial encounter (3) Sepsis Current Visit: Yes Status: Acute Qualifiers: Sepsis type: sepsis due to unspecified organism Sepsis acute organ dysfunction status: without acute organ dysfunction Qualified Code(s): A41.9 - Sepsis, unspecified organism (4) Bipolar disorder Current Visit: No Status: Chronic (5) Schizophrenia Current Visit: No Status: Chronic Qualifiers: Schizophrenia type: unspecified Qualified Code(s): F20.9 - Schizophrenia, unspecified - Plan Continue IV Zosyn. Pain management as needed Keep left leg elevated. Obtain wound culture. Follow blood cultures. Consult to general surgery. Reconcile and continue home medications. Monitor CBC to follow leukocytosis.
[2022-03-16] MEDS ORDERED: SILVER SULFADIAZINE 1% 25 GM TOP ONE (14:00)
[2022-03-16] MEDS: SILVER SULFADIAZINE 1% 25 GM TOP SCH (15:17)
--- NOTE | 2022-03-16 19:41 | CON ---
Date of Consultation: 03/16/2022 History Of Present Illness: The patient is a 56-year-old female with a past medical histor y of schizophrenia, who was breaking up a fight between 2 dogs, 1 dog being hers and another strange dog unknown to her who were in a dog fight. She tried pushing in between them and ultimately was bit ten by both dogs, her dog as well as the unknown dog bit her about the left hand and left lower extre mity and there was a laceration to her lateral lower extremity, which occurred approximately 3-4 days ago. She states that it initially did not seem to be problematic other than the laceration, which s he wrapped up. Ultimately, she noted significant swelling, worsening pain, the swelling has now exte nded up her leg and has been causing more pain to the entire lower extremity. She has had some only clear or bloody drainage. She does not know of any pus. She has never had similar episodes before i n the past. She does not know the rabies status of the strange dog. She currently has only pain, sw elling, and tenderness of the left lower extremity and the left hand area, but minimal on the hand, m ostly on the left lower extremity. Past Medical History: Significant for schizophrenia, bipolar, fibromyalgia, depression. Past Surgical History: Includes a right hip replacement. She lives at home with a roommate. Allergies: HYDROCORTISONE, SURGICAL TAPE. Family History: Significant for hypertension, diabetes, stroke, cancer in her mother. Father had hy pertension and heart disease. Social History: She smokes cigarettes every day. She denies alcohol or recreational drug use. Review of Systems: Ten-point review of systems other than HPI, denies. Physical Examination: Vital Signs: At the time of examination, her vital signs were a BMI of 27. Her vital signs continue d had a blood pressure 107/64, pulse 67, respiratory rate 18, temperature 98.2, SpO2 97% on room air. General: She is awake, alert, and oriented. Psychiatric: She is appropriate, conversive. HEENT: She is normocephalic. Sclerae are icteric. Mucous membranes are moist. Oropharynx clear. Neck: Supple without JVD. Chest: Normal expansion and excursion. Cardiovascular: Regular rate and rhythm. Pulmonary: Clear to auscultation bilaterally. Abdomen: Soft, nontender. Extremities: She has minor abrasions to the left hand consistent with minor abrasions and/or teeth s cratches not breaking the dermis. Focused examination of the left lower extremity shows that there i s an open approximately 1.5 cm to 2 cm x 0.5 cm open laceration of the medial aspect of the lower ext remity and there are multiple smaller abrasions in the area extending from the foot to swelling, whic h extends from the foot all the way up to above the knee. There is cellulitic changes around the wou nd as described and extending down to the foot. There is tenderness also associated with this. Laboratory Data: Reveals a white blood cell count of 14.4, hemoglobin is 12.0, hematocrit of 36.5, p latelet count is 228, neutrophils are 74%. Her sodium 139, potassium 3.5, chloride 108, carbon dioxi de 26, BUN 7, creatinine 0.5, glucose is 103, lactic acid was 1.4 on admission. She has a positive b acteria in her urinalysis. COVID was negative. She had imaging performed as well, which is a tibia- fibula x-ray officially read as a radiopaque foreign body not detected. No fracture seen. Soft tiss ue swelling noted. She also had an x-ray of the left hand, which is officially read as no fracture, dislocation, or radiopaque foreign body not seen. Assessment And Plan: This is a 56-year-old female who comes in after a dog bite to the left lower ex tremity and abrasions to the left hand after breaking up a dog fight. 1.IV fluid hydration. 2.Antibiotic coverage. 3.I have explained the patient will be initiated with wound care. We will do Dakin's damp to dry on the open wound and Silvadene to the surrounding cellulitic changes, wrapped with wrapping and elevat ion of lower extremity and serial exams. I have explained the risks, benefits, and alternatives to above-stated plan. The patient agrees to proceed as indicated. TRAVIS/ESTHELA Voice ID: [id number] Report ID: [id number]
[2022-03-16] MEDS ORDERED: SODIUM HYPOCHLORITE 0.25% 473 ML TOP SCH (21:00)
[2022-03-16] MEDS: ALPRAZOLAM 0.5 MG TABLET PO PRN (22:16)
[2022-03-17] MEDS: PIPER TAZO 3.375 GM in NA CHLORIDE 0.9% 100 ML IV SCH ×3 (01:32→17:14)
[2022-03-17 06:12] LABS: Absolute Lymphocytes (CBC) 2.2 K/uL (0.7-4.9); Hematocrit 38.6 % (36.0-45.0); Lymphocytes % 22.3 % (15.3-44.8); MCV 91.6 fL (80-100); MPV 9.1 fL (7.6-11.3); RBC Red Blood Cell Count 4.22 M/uL (3.86-4.86)
[2022-03-17 06:23] LABS: Potassium 3.9 mmol/L (3.5-5.1)
[2022-03-17] MEDS: ENOXAPARIN 40 MG/0.4 ML SQ SCH (08:37)
[2022-03-17] MEDS ORDERED: POTASSIUM CL SA 10 MEQ TAB PO ONE (09:00)
[2022-03-17] MEDS: SODIUM HYPOCHLORITE 0.25% 473 ML TOP SCH (10:20)
[2022-03-17] MEDS: SILVER SULFADIAZINE 1% 25 GM TOP SCH (10:21)
--- NOTE | 2022-03-17 13:17 | P.PN ---
Subjective Date of Service: 03/17/22 Chief Complaint: Cellulitus LLE Patient left leg swelling and erythema have improved. She was seen by Dr. Rosario who is concerned that the wound is looking infected No fever. Physical Examination - Vital Signs Temperature: 97.6 F Blood Pressure: 136/78 Pulse: 61 Respirations: 16 Pulse Ox (%): 98 - Physical Exam General: Alert, In no apparent distress, Oriented x3 HEENT: Mucous membr. moist/pink Neck: JVD not distended Respiratory: Clear to auscultation bilaterally, Normal air movement Cardiovascular: No edema, Regular rate/rhythm, Normal S1 S2 Gastrointestinal: Soft and benign, Non-distended, No tenderness Musculoskeletal: Swelling (Left leg slightly swollen) Integumentary: Other (Wound at the distal medial aspect of left leg) Neurological: Normal strength at 5/5 x4 extr - Studies Microbiology Data (last 24 hrs): 03/15/22 18:53 Blood - Blood Blood Culture Gram Stain - Final Assessment And Plan - Current Problems (Diagnosis) (1) Cellulitis of leg without foot, left Current Visit: Yes Status: Acute (2) Dog bite of left lower leg with infection Current Visit: Yes Status: Acute Qualifiers: Encounter type: initial encounter Qualified Code(s): S81.852A - Open bite, left lower leg, initial encounter; L08.9 - Local infection of the skin and subcutaneous tissue, unspecified; W54.0XXA - Bitten by dog, initial encounter (3) Sepsis Current Visit: Yes Status: Acute Qualifiers: Sepsis type: sepsis due to unspecified organism Sepsis acute organ dysfunction status: without acute organ dysfunction Qualified Code(s): A41.9 - Sepsis, unspecified organism (4) Bipolar disorder Current Visit: No Status: Chronic (5) Schizophrenia Current Visit: No Status: Chronic Qualifiers: Schizophrenia type: unspecified Qualified Code(s): F20.9 - Schizophrenia, unspecified - Plan Continue IV Zosyn. Pain management as needed Keep left leg elevated. Wound cultures: Negative to date. Follow blood cultures: General surgery-Dr. Rosario input appreciated. Continue wound care. Dr. Rosario is considering debridement tomorrow. Continue other home medications. Leukocytosis resolved.
[2022-03-17] MEDS: MORPHINE 2 MG/ML SYR IV PRN (23:13)
[2022-03-17] MEDS: ALPRAZOLAM 0.5 MG TABLET PO PRN (23:19)
[2022-03-18] MEDS: PIPER TAZO 3.375 GM in NA CHLORIDE 0.9% 100 ML IV SCH ×2 (01:11→09:23)
[2022-03-18] MEDS: MORPHINE 2 MG/ML SYR IV PRN (01:16)
[2022-03-18] MEDS: SILVER SULFADIAZINE 1% 25 GM TOP SCH (09:00)
[2022-03-18] MEDS: SODIUM HYPOCHLORITE 0.25% 473 ML TOP SCH (09:00)
[2022-03-18] MEDS: ENOXAPARIN 40 MG/0.4 ML SQ SCH (09:00)
[2022-03-18] MEDS ORDERED: LIDOCAINE JELLY 2%- 5 ML TUBE TOP ONE (09:27)
--- NOTE | 2022-03-18 10:37 | P.OP ---
Preoperative diagnosis: LEFT lower extremity Dog Bite Postoperative diagnosis: LEFT lower extremity Dog Bite Primary procedure: Debridement of LEFT lower extremity dog bite Anesthesia: GETA + Local Estimated blood loss: <3cc Specimen: none Findings: ~2cm x 1 cm open wound of LEFT medial calf Complications: None Transferred to: Other (floor) Condition: Good
--- NOTE | 2022-03-18 11:25 | OP ---
Date of Procedure: 03/18/2022 Surgeon: Ayo Rosario MD, Preoperative Diagnosis: Left lower extremity dog bite. Postoperative Diagnosis: Left lower extremity dog bite. Procedure Performed: Debridement of left lower extremity dog bite at the bedside. Anesthesia: General endotracheal plus local. Estimated Blood Loss: Less than 3 cc. Specimen: None. Findings: Approximately 2 cm x 1 cm open wound to the left medial calf with necrosis. Complications: None. The patient remained on the floor in good condition at the end of the procedure. Procedure In Detail: After informed consent was obtained, the patient was prepped and draped in the usual sterile fashion. After adequate anesthesia was achieved with 1% lidocaine with epinephrine, I used a curette to cleanse off necrotic nonviable tissue off the medial left calf area where a previou s dog bite open wound was present. I found necrotic material and cleaned this out using sharp dissec tion. Combination of pickups, scissors and curette was used to clean this. The area was copiously i rrigated and packed with a sterile dressing. The patient tolerated the procedure well without eviden ce of complication and remained in the room in good condition throughout the procedure. All counts were co rrect at the end of the case. TRAVIS/ESTHELA Voice ID: [id number] Report ID: [id number]
[2022-03-18 12:25] VITALS: BP 182/96; TEMP 97.2
--- NOTE | 2022-03-18 13:44 | P.DS ---
Admission Date: 03/15/22 Discharge Date: 03/18/22 Disposition: ROUTINE DISCHARGE Discharge Condition: FAIR Reason for Admission: Cellulitus LLE - Problems (1) Cellulitis of leg without foot, left Current Visit: Yes Status: Acute (2) Dog bite of left lower leg with infection Current Visit: Yes Status: Acute Qualifiers: Encounter type: initial encounter Qualified Code(s): S81.852A - Open bite, left lower leg, initial encounter; L08.9 - Local infection of the skin and subcutaneous tissue, unspecified; W54.0XXA - Bitten by dog, initial encounter (3) Sepsis Current Visit: Yes Status: Acute Qualifiers: Sepsis type: sepsis due to unspecified organism Sepsis acute organ dysfunction status: without acute organ dysfunction Qualified Code(s): A41.9 - Sepsis, unspecified organism (4) Bipolar disorder Current Visit: No Status: Chronic (5) Schizophrenia Current Visit: No Status: Chronic Qualifiers: Schizophrenia type: unspecified Qualified Code(s): F20.9 - Schizophrenia, unspecified Brief History of Present Illness: Patient is a 56-year-old female with schizophrenia who presented to the ED with complaints of left lower leg infection. Patient states that a few days ago, she broke up a fight between 2 dogs and sustained injuries to her left lower leg, left and right arms. She reported a combination of bites and scratches. She believed that both of the dogs are vaccinated. Patient was initially febrile at 100.8 Fahrenheit upon presentation to the ED. Labs significant for WBC 16, potassium 3.2, lactic acid and Pro-Chriss WNL. X-rays negative for fracture or foreign body. She was started on Zosyn and admitted for further management. Hospital Course: Patient admitted to the medical floor and treated with antibiotics. Seen by general surgery-Dr. Rosario who performed bedside irrigation and debridement. Leukocytosis resolved. Patient was afebrile during the hospital stay. Left lower extremity swelling and redness have significantly improved. She was given conflicting reports regarding the vaccination status of the dogs. Patient seen by animal control in the hospital, who recommended no rabies vaccination at this time. Animal control will monitor and decide need for vaccination as outpatient. Wound care prescribed by Dr. Rosario. Patient is deemed stable for discharge. Vital Signs/Physical Exam: Temp Pulse Resp BP Pulse Ox 97.2 F 61 18 182/96 H 99 06/05/22 12:00 03/18/22 12:00 03/18/22 12:00 03/18/22 12:00 03/18/22 12:00 General: Alert, In no apparent distress, Oriented x3 HEENT: Mucous membr. moist/pink Neck: JVD not distended Respiratory: Clear to auscultation bilaterally, Normal air movement Cardiovascular: Regular rate/rhythm, Normal S1 S2 Gastrointestinal: Soft and benign, Non-distended Musculoskeletal: No swelling Integumentary: No rashes Neurological: Normal strength at 5/5 x4 extr Laboratory Data at Discharge: WBC 9.7 K/uL (4.3-10.9) D 03/17/22 05:46 Hgb 12.5 g/dL (12.0-15.0) 03/17/22 05:46 Hct 38.6 % (36.0-45.0) 03/17/22 05:46 Plt Count 244 K/uL (152-406) 03/17/22 05:46 Sodium 140 mmol/L (136-145) 03/17/22 05:46 Potassium 3.9 mmol/L (3.5-5.1) 03/17/22 05:46 BUN 9 mg/dL (7-18) 03/17/22 05:46 Creatinine 0.51 mg/dL (0.55-1.3) L 03/17/22 05:46 Glucose 95 mg/dL (74-106) 03/17/22 05:46 Total Bilirubin 0.4 mg/dL (0.2-1.0) 03/16/22 05:29 AST 4 U/L (15-37) L 03/16/22 05:29 ALT < 10 U/L (12-78) L 03/16/22 05:29 Alkaline Phosphatase 46 U/L (45-117) 03/16/22 05:29 Home Medications: Carbamazepine [Tegretol Xr] 150 mg PO BID 03/16/22 Hydroxyzine HCl [Atarax] 1 tab PO BID PRN 03/16/22 Risperidone [Risperdal] 1 tab PO BEDTIME 03/16/22 Amox/Clavulanate [Augmentin 875-125 Tab] 1 each PO BID #14 tab 03/18/22 Silver Sulfadiazine [Silvadene 1% Cream] 1 appl TOP DAILY #1 tube 03/18/22 New Medications: Amox/Clavulanate [Augmentin 875-125 Tab] 1 each PO BID #14 tab Silver Sulfadiazine [Silvadene 1% Cream] 1 appl TOP DAILY #1 tube Diet: Regular Activity: Ad lorena Followup: Ayo Rosario MD [ACTIVE - CAN ADMIT] - 1 Week (Call to schedule appointment ) Time spent managing pt's care (in minutes): 36
== END 2022-03-18 15:50 | disposition home or self-care (01) | DRG 854 ==
LOC: ER 18:11 → ERHOLD 22:14 → 2ND 22:21
PROVIDERS: ADMIT Internal Medicine; ATTEND Internal Medicine
PROC: 0JBP0ZZ Excision of Left Lower Leg Subcutaneous Tissue and Fascia, Open Approach (ICD-10-PCS; principal; 2022-03-18)
DX: A41.9 Sepsis, unspecified organism (principal); L03.116 Cellulitis of left lower limb; I96 Gangrene, not elsewhere classified; S81.852A Open bite, left lower leg, initial encounter; W54.0XXA Bitten by dog, initial encounter; Y92.009 Unspecified place in unspecified non-institutional (private) residence as the place of occurrence of the external cause; F20.9 Schizophrenia, unspecified; M79.7 Fibromyalgia; E87.6 Hypokalemia; F31.9 Bipolar disorder, unspecified; F17.210 Nicotine dependence, cigarettes, uncomplicated; Z96.641 Presence of right artificial hip joint; Z20.822 Contact with and (suspected) exposure to COVID-19
CPT/HCPCS: 36415; 80048; 80053; 81003; 81015; 82947; 83605; 84132; 84145; 85025; 87040; 87070; 87075; 87086; 87088; 87205; 96365; 97116; 97161; 97530; 99285; J1650; J2270; J2405; J2543; U0003

== ENCOUNTER 2022-06-07 12:12 | Emergency (ER) | payer OTHER ==
--- OUTSIDE RECORDS SUMMARY | 2022-06-07 12:19 | XMS REPORT | Continuity of Care Document ---
:1965 Author Organization [facility] t Address [address] [place] [address] Care Team Providers Name Role Phone Pcp, Patient Does Not Have A Primary Care Physician +[id number] Doctor Unassigned, [place] Attending Clinician Unavailable JACK CHRISTIANSEN Attending Clinician Unavailable Juliana Collado Attending Clinician Jack Christiansen MD Attending Clinician Payers Payer Name Policy Type Policy Number Effective Date Expiration Date S ource Problems Condition Condition Condition Status Onset Resolution Last Treating Co mments Source Name Details Category Date Date Treatment Clinician Date No known No known Disease Unive rs active active ity of problems problems [facility] Allergies, Adverse Reactions, Alerts Allergy Allergy Status Severity Reaction(s) Onset Inactive Treating Comm ents Source Name Type Date Date Clinician No Known DA Active U SJm Drug 1-18 Allergie 00:00: s 00 NO KNOWN Drug Active Univers ALLERGIE Class ity of S [facility] Social History Social Habit Start Date Stop Date Quantity Comments Source Exposure to Not sure [facility] SARS-CoV-2 (event) Medica l Branch Sex Assigned At [birth year] [facility] 00:00:00 00:00:00 [facility] Smoking Status Start Date Stop Date Source Unknown if ever smoked [facility] Medications Ordered Filled Start Stop Current Ordering Indication Dosage Frequency Signature Comments Components Source Medication Medication Date Date Medication? Clinician (SIG) Name Name No known No Univers medications 2-12 ity of 19:27: [address] amLODIPine 2022-0 Yes 5mg 5 mg, Univer s (NORVASC) 11-25 Oral, ity of tablet 5 mg 15:00: [place] First dose Medical on [facility] Branch 11/25/21 at 0900, Until Discontinu ed, Routine LORazepam 2021- No .5mg 0.5 mg, Univ ers (ATIVAN) 11-25 Oral, ity of tablet 0.5 00:00: 00:00 ONCE, 1 Isaak as mg 00 :00 dose, On Medical [place] 11/24/21 at 1800, CLARISSA amLODIPine 2021- No 5mg 5 mg, Unive rs (NORVASC) 11-24 Oral, ONCE ity of tablet 5 mg 23:45: 23:45 NOW, 1 Isaak as 00 :00 dose, On Medical Fri [place] 11/24/21 at 1745, Routine cloNIDine 2021- No .1mg 0.1 mg, Univ ers (CATAPRES) 11-24 Oral, ity of tablet 0.1 22:00: 21:00 ONCE, 1 Isaak as mg 00 :00 dose, On Medical Fri [place] 11/24/21 at 1600, STAT Vital Signs Vital Name Observation Time Observation Value Comments Source Systolic blood 2021-11-25 09:00:00 146 mm[Hg] Univer sity of pressure [facility] Diastolic blood 2021-11-25 09:00:00 89 mm[Hg] Unive rsity of pressure [facility] Heart rate 2021-11-25 09:00:00 78 /min [facility] Body temperature 2021-11-25 09:00:00 37.06 [facility]lene [facility] Respiratory rate 2021-11-25 09:00:00 16 /min [facility] Oxygen saturation in 2021-11-25 09:00:00 97 /min [facility] Arterial blood by [facility] Pulse oximetry [place] Body height 2021-11-24 18:28:00 165.1 cm [facility] Body weight 2021-11-24 18:28:00 68.04 kg [facility] BMI 2021-11-24 18:28:00 24.96 kg/m2 [facility] Procedures Procedure Date / Time Performing Clinician Source Performed EXTERNAL PROVIDER 2021-12-04 06:01:00 Doctor Loi, No Univ [facility] RECORDS Name Medical Branch URINE DRUG (IMMUNOASSAY) 2021-11-24 19:35:00 Juliana Marley [facility] DRUG Medical [facility] SCREEN W/O REFLEX TROPONIN I 2021-11-24 19:15:00 Donell Juliana [facility] COMP. METABOLIC PANEL 2021-11-24 19:15:00 Juliana Marley [facility] ([id number]) Medical Branch ACETAMINOPHEN 2021-11-24 [facility] WITH DIFF 2021-11-24 19:15:00 [facility] COVID-19 (ID NOW RAPID 2021-11-24 19:15:00 Juliana Marley [facility] TESTING) Medical [place] Encounters Start End Encounter Admission Attending Care Care Encounter Source Date/Time Date/Time Type Type Clinicians Facility Department ID 2021-10-31 Inpatient [facility] [id number] [facility] 10:08:00 45 2021-10-31 Inpatient [facility] [id number] [facility] 10:08:00 45 2021-12-04 2021-12-04 Orders Doctor MCFADDEN [id number] Univers 00:00:00 00:00:00 Only Unassigned, NICHOLAS [id number] ity of [place] [facility] [id number] [facility] [id number] [address] 2021-11-24 2021-11-25 Emergency X ЕЛЕНА [facility] ERT [id number] Univers 12:30[facility]00 [facility] 2021-11-25 Emergency Donell Juliana [facility] [id number] Univers 12:30:00 04:11:00 Елена [facility] [id number] ity of [facility] [id number] [facility] [id number] [address] ([facility]) Results Test Description Test Time Test Comments Results Result Comments Source TROPONIN I 2021-11-24 20:40:02 Test Item Value Reference Range Interpretation Comme nts TROPONIN I (test code = 0.005 ng/mL See_Comment [Au tomated message] The [id number]) system which ge nerated this result tra nsmitted reference range : <=0.034. The reference r levon was not used to int erpret this result as normal/abnormal . SENA (test code = SENA) Reference (Normal) Range (defined by the 99th percentile reference limit): <= 0.034 ng/mL Note: Cardiac troponin begins to rise 3-4 hours after the onset of ischemia. Repeat in 4-6 hours if the sample was drawn within 3-4 hours of the onset of the symptom and found normal. Diagnosis of myocardial injury is made with acute changes in cTn concentrations with at least one serial sample above the 99th percentile upper reference limit (URL), taken together with the patient's clinical presentation. Biotin has been reported to cause a negative bias, interpret results relative to patient's use of biotin. Lab Interpretation Normal (test code = 55646-5) [facility] 19:45:52 Test Item Value Reference Range Interpretation Comments ACETAMINOP (test code = <10.0 10.0-30.0 L 9130187650) SENA (test code = SENA) Toxic: Greater than 200 ug/mL @ 4 hour post ingestion or greater than 50 ug/mL @ 12 hour post ingestion Lab Interpretation (test Abnormal code = 85829-1) [facility] (ETOH) [id number] 19:45:47 Test Item Value Reference Range Interpretation Comments ALCOHOL (test code = <10 mg/dL 6420765942) SENA (test code = Toxic Greater than or SENA) equal to 80 mg/dL. NOTE: Whole blood values are approximately 10% to 15% lower than serum and plasma. [facility] ([id number]) 2021-11-24 19:39:27 Test Item Value Reference Range Interpretation Comments NA (test code = 137 mmol/L 135-145 7263700629) K (test code = 3.7 mmol/L 3.5-5.0 7778186366) CL (test code = 101 mmol/L 98-108 0632153235) CO2 TOTAL (test code 28 mmol/L 23-31 = 6667004355) AGAP (test code = 2-16 2106097685) BUN (test code = 12 mg/dL 7-23 3032820706) GLUCOSE (test code = 84 mg/dL 70-110 4181812093) CREATININE (test code 0.57 mg/dL 0.50-1.04 = 7222280173) TOTAL BILI (test code 0.6 mg/dL 0.1-1.1 = 7057522466) CALCIUM (test code = 9.3 mg/dL 8.6-10.6 1277759801) T PROTEIN (test code 6.4 g/dL 6.3-8.2 = 2636729538) ALBUMIN (test code = 4.0 g/dL 3.5-5.0 9231192760) ALK PHOS (test code = 65 U/L 34-122 3184881096) ALTv (test code = 14 U/L 5-35 2-6) AST(SGOT) (test code 17 U/L 13-40 = 6815546364) eGFR (test code = mL/min/1.73m2 4978948434) SENA (test code = SENA) Association of Glomerular Filtration Rate (GFR) and Staging of Kidney Disease* + + +- +| GFR (mL/min/1.73 m2) ?| With Kidney Damage ?| ?Without Kidney Damage+ ------+ ----+ ------+| ?>90 ?| ?Stage one ?| ? Normal ?+ -+ + -+| ?60-89 ?| ?Stage two ?| ? Decreased GFR ? + + +- +| ?30-59 ?| ?Stage three ?| ? Stage three ? + + +- +| ?15-29 ?| ?Stage four ? | ? Stage four ?+ -+ + -+| ?<15 (or dialysis) ? ?| ?Stage five ? | ? Stage five ?+ -+ + -+ *Each stage assumes the associated GFR level has been in effect for at least three months. ?Stages 1 to 5, with or without kidney disease, indicate chronic kidney disease. Notes: Determination of stages one and two (with eGFR >59mL/min/1.73 m2) requires estimation of kidney damage for at least three months as defined by structural or functional abnormalities of the kidney, manifested by either:Pathological abnormalities or Markers of kidney damage (including abnormalities in the composition of the blood or urine or abnormalities in imaging tests). [facility] with [id number] 19:23:39 Test Item Value Reference Range Interpretation Comments WBC (test code = See_Comment H [Automated 6690-2) message] The sy stem which generated this result transmitted reference range : 4.30 - 11.10 10*3/?L. The reference range was not used to interpret this result as normal/abnormal . RBC (test code = See_Comment [Automated 789-8) message] The sy stem which generated this result transmitted reference range : 3.93 - 5.25 10*6/?L. The reference range was not used to interpret this result as normal/abnormal . HGB (test code = 14.7 g/dL 11.6-15.0 718-7) HCT (test code = 46.0 % 35.7-45.2 H 4544-3) MCV (test code = 91.1 fL 80.6-95.5 787-2) MCH (test code = 29.1 pg 25.9-32.8 785-6) MCHC (test code = 32.0 g/dL 31.6-35.1 786-4) RDW-SD (test code = 51.1 fL 39.0-49.9 H 11764-5) RDW-CV (test code = 15.4 % 12.0-15.5 788-0) PLT (test code = See_Comment [Automated 777-3) message] The sy stem which generated this result transmitted reference range : 166 - 358 10*3/ ?L. The reference r levon was not used to interpret this result as normal/abnormal . MPV (test code = 11.3 fL 9.5-12.9 10856-6) NRBC/100 WBC (test See_Comment [Automat ed code = 0061696815) message] The system which generated this result transmitted reference range : 0.0 - 10.0 /100 WBCs. The refer ence range was not u sed to interpret th is result as normal/abnormal . NRBC x10^3 (test code <0.01 See_Comment [Auto mated = 7913468036) message] The s ystem which generated this result transmitted reference range : 10*3/?L. The reference range was not used to interpret this result as normal/abnormal . GRAN MAT (NEUT) % 75.7 % (test code = 770-8) IMM GRAN % (test code 0.50 % = 0598725643) LYMPH % (test code = 17.8 % 736-9) MONO % (test code = 5.3 % 5905-5) EOS % (test code = 0.5 % 713-8) BASO % (test code = 0.2 % 706-2) GRAN MAT x10^3(ANC) 9.73 10*3/uL 1.88-7.09 H (test code = 0734766882) IMM GRAN x10^3 (test 0.06 10*3/uL 0.00-0.06 code = 5628891332) LYMPH x10^3 (test code 2.29 10*3/uL 1.32-3.29 = 731-0) MONO x10^3 (test code 0.68 10*3/uL 0.33-0.92 = 742-7) EOS x10^3 (test code = 0.07 10*3/uL 0.03-0.39 711-2) BASO x10^3 (test code 0.03 10*3/uL 0.01-0.07 = 704-7) Lab Interpretation Abnormal (test code = 17662-6) [facility],[id number] 10:35:00 Test Item Value Reference Range Interpretation Comments PCP Phencyclidine Screen,Urine (test Negative Negative code = PCPU) Amphetamine Screen,Urine (test code Negative Negative = AMPU) Methadone Screen,Urine (test code = Negative Negative METHU) Opiate Screen,Urine (test code = Negative Negative UOPIS) Barbituates Screen,Urine (test code Negative Negative = BARBU) Benzodiazepines Screen,Urine (test Negative Negative code = UBENZS) Cocaine Screen,Urine (test code = Negative Negative UCOCS) Cannabinoid Screen,Urine (test code Positive Negative A = UTHCS) Propoxyphene Screen, Urine (test Negative Negative code = UPROP) UA, Urinalysis [id number] 10:35:00 Test Item Value Reference Range Interpretation Comments Color,Urine (test code = Yellow Yellow UCOL) Clarity,Urine (test code = Clear Clear UCLAR) PH,Urine (test code = 6.0 5.5-8.5 UPH.XX) Specific [place],Urine 1.025 1.005-1.030 N (test code = USG) Blood,Urine (test code = Moderate cells/uL Negative A UBLD) Protein,Urine (test code = Trace mg/dL Negative UPRO) Glucose,Urine (UA) (test Negative mg/dL Negative code = UGLU) Ketones,Urine (test code = Negative mg/dL Negative UKET) Nitrate,Urine (test code = Negative Negative UNIT) Bilirubin,Urine (test code Negative mg/dL Negative = UBIL) Urobilinogen,Urine (test 0.2 mg/dL Negative code = UURO) Leukocyte Esterase,Urine Negative cells/uL Negative (test code = ULEU) Sars-CoV-2/FLU A/B RSV [id number] 10:26:00 Test Item Value Reference Range Interpretation Comments Sars-CoV-2/FLU A/B SARS results, including RSV PCR (test code = Patient Name, or SARSFLURSVPCR) MRN, were Sars-CoV-2/FLU A/B Reference Range: RSV PCR (test code = Negative SARSFLURSVPCR1.1) Influenza A PCR: Negative by Nucleic Acid (test code = Amplification Influenza A PCR:) Influenza B PCR: Negative by Nucleic Acid (test code = Amplification Influenza B PCR:) RSV PCR Result: (test Negative by Nucleic Acid code = RSV PCR Amplification Result:) SARS-CoV-2 PCR Positive by RT-PCR A Result: (test code = SARS-CoV-2 PCR Result:) Comprehensive Metabolic [id number] 10:20:00 Test Item Value Reference Range Interpretation Comments SODIUM (test code = NA) 138.0 mmol/L 136.0-145.0 N Potassium,K (test code = K) 3.4 mmol/L 3.0-5.1 N Chloride (test code = CL) 103 mmol/L 98-107 N Carbon Dioxide (test code = CO2) 29 mmol/L 20-31 N Anion Gap (test code = GAP) 6 mmol/L 5-15 N Blood Urea Nitrogen (test code = 11 mg/dL 9-23 N BUN) Creatinine (test code = CREATT) 0.66 mg/dL 0.55-1.02 N Creatinine Clr Calc Pharmacy 83.92 mL/min (test code = CRCLPHA) Estimated GFR ( [place] > 60 mL/min/1.73m2 (test code = EGFRAA) Estimated GFR (Non Afr [place] > 60 mL/min/1.73m2 (test code = EGFRNAA) BUN/Creatinine Ratio (test code 17 ratio 10-20 N = BCRATIO) Glucose (test code = GLU) 95 mg/dL 74-106 N Osmolality,Calculated (test code 284.9 = OSMOC) Calcium (test code = CA) 8.7 mg/dL 8.3-10.6 N Bilirubin,Total (test code = 0.3 mg/dL 0.2-1.1 N BILIT) Aspartate Amino Transferase 25 U/L 0-34 N (test code = AST) Alanine Aminotransferase (test 22 U/L 10-49 N code = ALT) Total Protein (test code = TP) 7.2 g/dL 5.7-8.2 N Albumin Level (test code = ALB) 4.5 g/dL 3.2-4.8 N Globulin (test code = GLOB) 2.7 mg/dL 2.3-3.5 N Albumin/Globulin Ratio (test 1.7 ratio 0.8-2.0 N code = AGRATIO) Alkaline Phosphatase (test code 62 U/L 46-116 N = ALP) Ethanol [id number] 10:20:00 Test Item Value Reference Range Interpretation Comments Ethanol (test code < 3 mg/dL The pharm acological = ETOH) response to blo od alcohol levels mayvary from individual to i ndividual. The fatal cande ntrationhas been reported t o be >400mg/dL. HCG, Serum Qual (LAB)2021-10-31 10:20:00 Test Item Value Reference Range Interpretation Comments HCG, Serum Qual (LAB) (test code = Negative Negative HCGQ) Complete Blood Count Auto [id number] 10:20:00 Test Item Value Reference Range Interpretation Comments White Blood Count (test code = 7.3 x10 3/uL 4.4-10.5 N WBCT) Red Blood Count (test code = 5.50 x10 6/uL 3.75-5.20 H RBC) Hemoglobin (test code = HGBT) 15.9 g/dL 12.2-14.8 H Hematocrit (test code = HCTT) 51.6 % 36.5-44.4 H Mean Corpuscular Volume (test 93.80 fL 80.00-100.00 N code = MCV) Mean Corpuscular Hemoglobin 28.9 pg 27.0-32.5 N (test code = MCH) Mean Corpuscular HGB Conc 30.80 g/dL 32.00-37.50 L (test code = MCHC) RDW Coefficient of Variation 15.3 % 11.5-14.5 H (test code = RDWCV) Platelet Count (test code = 259.0 x10 3/uL 140.0-440.0 N PLTT) Mean Platelet Volume (test 11.3 fL code = MPV) Immature Granulocytes % (Auto) 0.4 % 0.0-5.0 N (test code = IMMGRAN%) Neutrophils % (Auto) (test 60.6 % 36.0-70.0 N code = NE%) Lymphocytes % (Auto) (test 30.0 % 12.0-44.0 N code = LY%) Monocytes % (Auto) (test code 8.5 % 0.0-11.0 N = MO%) Eosinophils % (Auto) (test 0.1 % 0.0-7.0 N code = EO%) Basophils % (Auto) (test code 0.4 % 0.0-2.0 N = BA%) Immature Granulocytes # (Auto) 0.03 x10 3/uL (test code = IMMGRAN#) Neutrophils # (Auto) (test 4.4 x10 3/uL 1.6-7.4 N code = NE#) Lymphocytes # (Auto) (test 2.20 x10 3/uL 0.50-4.60 N code = LY#) Monocytes # (Auto) (test code 0.62 x10 3/uL 0.00-1.20 N = MO#) Eosinophils # (Auto) (test 0.01 x10 3/uL 0.00-0.74 N code = EO#) Basophils # (Auto) (test code 0.03 x10 3/uL 0.00-0.21 N = BA#) nRBC Abs (test code = NRBCA) 0 nRBC Pct (test code = NRBCP) 0 %"
--- NOTE | 2022-06-07 13:11 | RAD REPORT ---
EXAM DESCRIPTION: CT - Head C Spine Mpr Wo Con - 06/07/2022 1:00 pm CLINICAL HISTORY: Syncope. Head and neck injury status post fall. Head and neck pain COMPARISON: None. TECHNIQUE: Computed axial tomography of the head and cervical spine was obtained. Sagittal and coronal reconstruction was performed. All CT scans are performed using dose optimization technique as appropriate and may include automated exposure control or mA/KV adjustment according to patient size. FINDINGS: An intracranial bleed is not seen. The ventricles are normal in caliber. An extra-axial fl uid collection is not noted.Fluid within the visualized sinuses and mastoids is not seen A cervical fracture is not visualized. No dislocation is noted. IMPRESSION: No acute intracranial abnormality is seen. A cervical fracture is not visualized. If the patient continues to have symptoms to suggest intracra nial /spinal cord pathology then MRI would be recommended
--- NOTE | 2022-06-07 13:28 | RAD REPORT ---
EXAM DESCRIPTION: RAD - Hip Right 2 View - 06/07/2022 1:09 pm CLINICAL HISTORY: Right hip pain FINDINGS: No fracture or dislocation is seen. Right hip prosthesis is in good position without evidence of loosening. Osteoporosis
--- NOTE | 2022-06-07 13:30 | RAD REPORT ---
EXAM DESCRIPTION: RAD - Shoulder Right 2 View - 06/07/2022 1:10 pm CLINICAL HISTORY: Right shoulder pain FINDINGS: No fracture or dislocation is seen.
--- NOTE | 2022-06-07 13:31 | RAD REPORT ---
EXAM DESCRIPTION: Harpreet Kelly View06/07/2022 1:09 pm CLINICAL HISTORY: Chest pain COMPARISON: none FINDINGS: The lungs appear clear of acute infiltrate. The heart is normal size A 4 centimeter curvilinear density overlies the lateral mid to upper right hemithorax. IMPRESSION: A 4 centimeter curvilinear density overlies the lateral mid to upper right hemithorax. It is of uncertain etiology but most likely is benign. It is recommended that the patient have a foll owup chest x-ray in 2 months for re-evaluation.
[2022-06-07 13:32] LABS: Absolute Lymphocytes (CBC) 1.7 K/uL (0.7-4.9); Hematocrit 44.1 % (36.0-45.0); Lymphocytes % 17.2 % (15.3-44.8); MCV 90.8 fL (80-100); MPV 9.4 fL (7.6-11.3); RBC Red Blood Cell Count 4.86 M/uL (3.86-4.86)
[2022-06-07 14:30] LABS: Potassium 3.9 mmol/L (3.5-5.1); Troponin High Sensitivity 5.2 pg/mL (<58.9)
--- NOTE | 2022-06-07 14:47 | EDPHYS ---
Physician Documentation [facility] Name: Aleha Cassidy Age: 56 yrs Sex: Female : 1965 Arrival Date: 06/07/2022 Time: 12:14 Bed 8 Private MD: ED Physician Carlos Poon HPI: 06/07 12:35 This 56 yrs old Female presents to ER via EMS with complaints of Fall Injury. pm1 12:35 Details of fall: The patient fell from an upright position, while standing. Onset: The pm1 symptoms/episode began/occurred just prior to arrival. Associated injuries: The patient sustained injury to the head, neck injury, Right hip and right shoulder. Severity of symptoms: in the emergency department the symptoms have improved. The patient has not experienced similar symptoms in the past. The patient has not recently seen a physician. 56-year-old patient presents to the ER with complaints fall injury. Patient reporting pain to neck, right shoulder, and right hip. Patient reports she was having a possible anxiety attack prior to having a syncopal episode. Patient without any chest pain, shortness of breath, abdominal pain. Patient also reports she has not been eating or drinking well. Did not take anything by mouth today due to stressors in her life. Historical: - Allergies: 12:29 cortizone shots; bp 12:29 surgical tape; bp - Home Meds: 12:29 Risperdal Oral [Active]; Trileptal oral [Active]; bp - PMHx: 12:29 Bipolar disorder; depressive disorder; Fibromyalgia; Schizophrenia; bp - PSHx: 12:29 Right hip replacement; bp - Immunization history:: Adult Immunizations up to date. - Social history:: Smoking status: unknown. ROS: 12:35 Constitutional: Negative for fever, chills, and weight loss, Cardiovascular: Negative pm1 for chest pain, palpitations, and edema, Respiratory: Negative for shortness of breath, cough, wheezing, and pleuritic chest pain, Abdomen/GI: Negative for abdominal pain, nausea, vomiting, diarrhea, and constipation, Back: Negative for injury and pain, Skin: Negative for injury, rash, and discoloration. 12:35 Neck: Positive for of the neck, Pain. 12:35 MS/extremity: Positive for pain, of the Right shoulder and right hip. 12:35 Neuro: Positive for dizziness. 12:35 Psych: Positive for anxiety, depression, Negative for homicidal ideation, suicide gesture, suicidal ideation. 12:35 All other systems are negative. Exam: 12:35 Constitutional: This is a well developed, well nourished patient who is awake, alert, pm1 and in no acute distress. Head/Face: Normocephalic, atraumatic. 12:35 Back: No spinal tenderness. No costovertebral tenderness. Full range of motion. Skin: Warm, dry with normal turgor. Normal color with no rashes, no lesions, and no evidence of cellulitis. MS/ Extremity: Pulses equal, no cyanosis. Neurovascular intact. Full, normal range of motion. 12:35 Eyes: Exam is negative for acute changes, Periorbital structures: appear normal, Pupils: no acute changes, Extraocular movements: no acute changes, Conjunctiva: no acute changes, no injection. 12:35 ENT: Exam is negative for acute changes, Mouth: no acute changes, Lips: normal, moist, Oral mucosa: normal, pink and intact, moist. 12:35 Neck: C-spine: C-collar placed WO[employer]S [employer]ER, vertebral tenderness, is not appreciated. 12:35 Cardiovascular: Exam negative for acute changes, Rate: normal, Rhythm: regular, Pulses: no pulse deficits are appreciated, Heart sounds: normal, normal S1and S2. 12:35 Respiratory: Exam negative for acute changes, respiratory distress, shortness of breath, Breath sounds: are clear throughout. 12:35 Abdomen/GI: Inspection: abdomen appears normal, Palpation: abdomen is soft and non-tender, in all quadrants. 12:35 Neuro: Exam negative for acute changes, Orientation: is normal, Mentation: is normal, Motor: is normal, moves all fours. Vital Signs: 12:28 BP 125 / 82; Pulse 72; Resp 16; Temp 98; Pulse Ox 97% ; bp 13:11 BP 135 / 89; Pulse 65; Resp 18; Pulse Ox 99% on R/A; Pain 8/10; ld1 13:45 BP 151 / 97 RA Supine (auto/reg); Pulse 69; Resp 18; Pulse Ox 100% on R/A; eh3 13:47 BP 151 / 100 RA Sitting (auto/reg); Pulse 64; Resp 18; Pulse Ox 100% on R/A; eh3 13:49 BP 167 / 107 RA Standing (auto/reg); Pulse 72; Resp 20; Pulse Ox 100% on R/A; eh3 15:21 BP 162 / 98; Pulse 72; Resp 18; Pulse Ox 100% on R/A; ld1 MDM: 12:26 Patient medically screened. pm1 14:45 Data reviewed: vital signs. Data interpreted: Pulse oximetry: on room air is 100 %. pm1 Interpretation: normal. 14:52 Special discussion: I discussed with the patient the need to follow-up with the pm1 PCP/specialist for the noted incidental finding on X-ray/CT scanning. Discussed curvilinear density with patient and recommendation by radiologist for follow up in x-ray in 2 months for reevaluation . 06/07 12:34 Order name: Basic Metabolic Panel; Complete Time: 14:31 pm1 06/07 12:34 Order name: CBC with Diff; Complete Time: 13:35 pm1 06/07 12:29 Order name: CT Head C Spine; Complete Time: 13:17 ms3 06/07 12:29 Order name: XRAY Chest (1 view); Complete Time: 13:35 ms3 06/07 12:29 Order name: Hip Right 2 View XRAY; Complete Time: 13:35 ms3 06/07 12:34 Order name: Troponin HS; Complete Time: 14:31 pm1 06/07 12:34 Order name: EKG; Complete Time: 12:35 pm1 06/07 12:34 Order name: Cardiac monitoring; Complete Time: 13:24 pm1 06/07 12:34 Order name: EKG - Nurse/Tech; Complete Time: 13:43 pm1 06/07 12:34 Order name: IV Saline Lock; Complete Time: 13:24 pm1 06/07 12:34 Order name: Labs collected and sent; Complete Time: 13:24 pm06/07 13:09 Order name: Shoulder Right 2 View; Complete Time: 13:35 EDMS 06/07 12:34 Order name: O2 Per Protocol; Complete Time: 13:24 pm06/07 12:34 Order name: O2 Sat Monitoring; Complete Time: 13:24 pm1 06/07 12:34 Order name: Orthostatics; Complete Time: 13:56 pm1 06/07 13:36 Order name: Labs - recollect needed: Recollect green top please, hemolyzed; Complete em1 Time: 13:56 EC:56 Rate is 62 beats/min. Rhythm is regular, Normal Sinus Rhythm with No ectopy. QT pm1 interval is normal. No Q waves. T waves are Normal. No ST changes noted. Clinical impression: Normal ECG. Administered Medications: 14:55 Drug: NS 0.9% 1000 ml Route: IV; Rate: 1 bolus; Site: left antecubital; ld1 Disposition: 06/08 11:13 Co-signature as Attending Physician, Carlos Poon DO I agree with the assessment and ms3 plan of care. Disposition Summary: 06/07/22 14:46 Discharge Ordered Location: Home pm1 Problem: new pm1 Symptoms: have improved pm1 Condition: Stable pm1 Diagnosis - Fall on same level, unspecified pm1 Followup: pm1 - With: Emergency Department - When: As needed - Reason: Worsening of condition Followup: pm1 - With: Private Physician - When: 2 - 3 days - Reason: Recheck today's complaints, Continuance of care, Re-evaluation by your physician Forms: - Medication Reconciliation Form pm1 - Thank You Letter pm1 - Antibiotic Education pm1 - Prescription Opioid Use pm1 Signatures: Dispatcher [employer] EDMS Alek Luna em1 Dick Yoo, ADELINA BROADCAST TRANSMITTER OPERATOR pm1 Gama Renae, RN RN Carlos Sheppard DO DO ms3 Elisabet Coyle, INDERJIT RN ld1 Corrections: (The following items were deleted from the chart) 06/07 13:09 12:30 Shoulder Left 2 View+RAD.RAD.BRZ ordered. EDMS EDMS
--- NOTE | 2022-06-07 14:47 | ER ---
Nurse's Notes [facility] Name: Aleah Cassidy Age: 56 yrs Sex: Female : 1965 Arrival Date: 06/07/2022 Time: 12:14 Bed 8 Private MD: Diagnosis: Fall on same level, unspecified Presentation: 06/07 12:28 Chief complaint: EMS states: UNWITNESSED SYNCOPAL FALL. Coronavirus screen: At this bp time, the client does not indicate any symptoms associated with coronavirus-19. Ebola Screen: No symptoms or risks identified at this time. Initial Sepsis Screen: Does the patient meet any 2 criteria? No. Patient's initial sepsis screen is negative. Does the patient have a suspected source of infection? No. Patient's initial sepsis screen is negative. Risk Assessment: Do you want to hurt yourself or someone else? Patient reports no desire to harm self or others. Onset of symptoms was June 07, 2022 at 12:00. Care prior to arrival: Cervical collar in place. Mechanism of Injury: Fall from standing position. 12:28 Method Of Arrival: EMS: [facility] bp 12:28 Acuity: AMIRAH 3 bp Triage Assessment: 12:29 General: Appears in no apparent distress. Behavior is cooperative, appropriate for age, bp anxious. Pain: Complains of pain in GENERALIZED RIGHT SIDE. EENT: No deficits noted. Neuro: Level of Consciousness is awake, alert, obeys commands, Oriented to Appropriate for age Reports a syncopal episode. Cardiovascular: No deficits noted. Respiratory: No deficits noted. GI: No signs and/or symptoms were reported involving the gastrointestinal system. : No signs and/or symptoms were reported regarding the genitourinary system. Derm: No deficits noted. Musculoskeletal: No deficits noted. Historical: - Allergies: 12:29 cortizone shots; bp 12:29 surgical tape; bp - Home Meds: 12:29 Risperdal Oral [Active]; Trileptal oral [Active]; bp - PMHx: 12:29 Bipolar disorder; depressive disorder; Fibromyalgia; Schizophrenia; bp - PSHx: 12:29 Right hip replacement; bp - Immunization history:: Adult Immunizations up to date. - Social history:: Smoking status: unknown. Screenin:31 Abuse screen: Denies threats or abuse. Denies injuries from another. Nutritional bp screening: No deficits noted. Tuberculosis screening: No symptoms or risk factors identified. Fall Risk Fall in past 12 months (25 points). No secondary diagnosis (0 pts). No IV (0 pts). Ambulatory Aid- None/Bed Rest/Nurse Assist (0 pts). Gait- Normal/Bed Rest/Wheelchair (0 pts) Mental Status- Oriented to own ability (0 pts). Total Momin Fall Scale indicates Low Risk Score (25-44 pts). Fall prevention measures have been instituted. Side Rails Up X 2 Placed close to Nursing Station Frequent Obs/Assesments occuring. Assessment: 12:31 General: SEE TRIAGE NOTE. bp 14:01 Pain: Complains of pain in sacrum Pain does not radiate. Pain currently is 8 out of 10 eh3 on a pain scale. Quality of pain is described as sharp, Pain began 1 day ago. Is continuous. Neuro: Reports dizziness, since 1 day ago. GI: Reports lack of appetite since 1 day ago. States she has not eaten since lunch yesterday. Vital Signs: 12:28 BP 125 / 82; Pulse 72; Resp 16; Temp 98; Pulse Ox 97% ; bp 13:11 BP 135 / 89; Pulse 65; Resp 18; Pulse Ox 99% on R/A; Pain 8/10; ld1 13:45 BP 151 / 97 RA Supine (auto/reg); Pulse 69; Resp 18; Pulse Ox 100% on R/A; eh3 13:47 BP 151 / 100 RA Sitting (auto/reg); Pulse 64; Resp 18; Pulse Ox 100% on R/A; eh3 13:49 BP 167 / 107 RA Standing (auto/reg); Pulse 72; Resp 20; Pulse Ox 100% on R/A; eh3 15:21 BP 162 / 98; Pulse 72; Resp 18; Pulse Ox 100% on R/A; ld1 ED Course: 12:14 Patient arrived in ED. em1 12:24 Dick Yoo NP is PHCP. pm1 12:24 Carlos Poon DO is Attending Physician. pm1 12:29 Triage completed. bp 12:29 Arm band placed on. bp 12:31 Patient has correct armband on for positive identification. Bed in low position. Call bp light in reach. Side rails up X2. 12:33 Dick Yoo NP is PHCP. pm1 13:02 CT Head C Spine In Process Unspecified. EDMS 13:06 Gama Renae, RN is Primary Nurse. bp 13:11 Shoulder Right 2 View In Process Unspecified. EDMS 13:11 XRAY Chest (1 view) In Process Unspecified. EDMS 13:11 Hip Right 2 View XRAY In Process Unspecified. EDMS 13:24 Inserted saline lock: 22 gauge in left antecubital area, using aseptic technique. Blood bp collected. 15:35 No provider procedures requiring assistance completed. IV discontinued, intact, ld1 bleeding controlled, No redness/swelling at site. Administered Medications: 14:55 Drug: NS 0.9% 1000 ml Route: IV; Rate: 1 bolus; Site: left antecubital; ld1 Medication: 12:31 VIS not applicable for this client. bp Outcome: 14:46 Discharge ordered by MD. pm1 15:35 Discharged to home ambulatory. ld1 15:35 Condition: stable 15:35 Discharge instructions given to patient, Instructed on discharge instructions, follow up and referral plans. Demonstrated understanding of instructions, follow-up care. 15:35 Patient left the ED. ld1 Signatures: Dispatcher [employer] EDAlek Marshall em1 Dick Yoo NP LAND EXAMINER pm1 Gama Renae, RN RN Elisabet Durbin RN RN ld1 Rukhsana Matos, INDERJIT RN eh3
[2022-06-07] MEDS ORDERED: NA CHLORIDE 0.9% 1,000 ML ONE (15:02)
[2022-06-07 16:25] VITALS: TEMP 98
[2022-06-07 16:29] VITALS: O2SAT 100
[2022-06-07 16:35] VITALS: BP 162/98
--- NOTE | 2022-06-09 15:23 | EKG ---
Test Date: 2022-06-07 Test Time: 13:43:48 [employer] Driver: RANJITH MEASUREMENT RESULTS: Intervals: Rate: 62 ME: 144 QRSD: 80 QT: 420 QTc: 426 [place]: P: 55 ME: 144 QRS: 44 T: 63 INTERPRETIVE STATEMENTS: Normal sinus rhythm Normal ECG Compared to ECG 11/21/2021 16:02:14 No significant changes Electronically Signed On 06-09-22 15:20:27 CDT by Montez Valverde
== END 2022-06-07 15:35 | disposition home or self-care (01) ==
LOC: ER 12:12
DX: M54.2 Cervicalgia (principal); M25.511 Pain in right shoulder; M25.551 Pain in right hip; W18.30XA Fall on same level, unspecified, initial encounter; Z96.641 Presence of right artificial hip joint; Z88.8 Allergy status to other drugs, medicaments and biological substances; Z91.048 Other nonmedicinal substance allergy status; F20.9 Schizophrenia, unspecified
CPT/HCPCS: 93005; 85025; 80048; 36415; 84484; 70450; 72125; 71045; 73502; 73030; 99284; J7030

== ENCOUNTER 2022-06-22 09:36 | Emergency (ER) | payer OTHER ==
--- OUTSIDE RECORDS SUMMARY | 2022-06-22 09:40 | XMS REPORT | Continuity of Care Document ---
:1965 Author Organization [facility] t Address [address] [place] [address] Care Team Providers Name Role Phone Pcp, Patient Does Not Have A Primary Care Physician +[id number] Doctor Unassigned, [place] Attending Clinician Unavailable JACK CHRISTIANSEN Attending Clinician Unavailable Juliana Collado Attending Clinician Jack Christiansen MD Attending Clinician Payers Payer Name Policy Type Policy Number Effective Date Expiration Date S ource Problems Condition Condition Condition Status Onset Resolution Last Treating Co mments Source Name Details Category Date Date Treatment Clinician Date No known No known Disease Unive rs active active ity of problems problems [facility] Allergies, Adverse Reactions, Alerts Allergy Allergy Status Severity Reaction(s) Onset Inactive Treating Comm ents Source Name Type Date Date Clinician No Known DA Active U [facility] Drug 1-18 Allergie 00:00: s 00 NO KNOWN Drug Active Univers ALLERGIE Class ity of [facility] Social History Social Habit Start Date Stop Date Quantity Comments Source Exposure to Not sure [facility] SARS-CoV-2 (event) Medica l Branch Sex Assigned At [birth year] [facility] 00:00:00 00:00:00 [facility] Smoking Status Start Date Stop Date Source Unknown if ever smoked [facility] Medications Ordered Filled Start Stop Current Ordering Indication Dosage Frequency Signature Comments Components Source Medication Medication Date Date Medication? Clinician (SIG) Name Name No known No Univers medications 2-12 ity of 19:27: [address] amLODIPine Yes 5mg 5 mg, Univer s (NORVAS) 11-25 Oral, ity of tablet 5 mg 15:00: [place] First dose Medical on [facility] Branch 11/25/21 at 0900, Until Discontinu ed, Routine LORazepam 2021- No .5mg 0.5 mg, Univ ers (ATIVAN) 11-25 Oral, ity of tablet 0.5 00:00: 00:00 ONCE, 1 Isaak as mg 00 :00 dose, On Medical Fri Branch 11/24/21 at 1800, CLARISSA amLODIPine 2021- No 5mg 5 mg, Unive rs (NORVASC) 11-24 Oral, ONCE ity of tablet 5 mg 23:45: 23:45 NOW, 1 Isaak as 00 :00 dose, On [facility] 11/24/21 at 1745, Routine cloNIDine 2021- No .1mg 0.1 mg, Univ ers (CATAPRES) 11-24 Oral, ity of tablet 0.1 22:00: 21:00 ONCE, 1 Isaak as mg 00 :00 dose, On Medical Fri [place] 11/24/21 at 1600, STAT Vital Signs Vital Name Observation Time Observation Value Comments Source Systolic blood 2021-11-25 09:00:00 146 mm[Hg] Univer sity of pressure [facility] Diastolic blood 2021-11-25 09:00:00 89 mm[Hg] Unive rsity of [facility] Heart rate 2021-11-25 09:00:00 78 /min [facility] Body temperature 2021-11-25 09:00:00 37.06 Jaylene [facility] [place] [place] Respiratory rate 2021-11-25 09:00:00 16 /min [facility] Oxygen saturation in 2021-11-25 09:00:00 97 /min [facility] Arterial blood by [facility] Pulse oximetry Branch Body height 2021-11-24 18:28:00 165.1 cm [facility] Body weight 2021-11-24 18:28:00 68.04 kg [facility] BMI 2021-11-24 18:28:00 24.96 kg/m2 [facility] Procedures Procedure Date / Time Performing Clinician Source Performed EXTERNAL PROVIDER 2021-12-04 06:01:00 Doctor Loi, No [facility] RECORDS Name Medical [place] URINE DRUG (IMMUNOASSAY) 2021-11-24 19:35:00 Juliana Marley [facility] COMPREHENSIVE DRUG Medical [facility] nc SCREEN W/O REFLEX TROPONIN I 2021-11-24 19:15:00 Donell Juliana [facility] COMP. METABOLIC PANEL 2021-11-24 19:15:00 Juliana Marley [facility] ([id number]) Medical [place] ACETAMINOPHEN 2021-11-24 19:15:00 Donell Juliana [facility] ETHANOL 2021-11-24 [facility]:15[facility]FF 2021-11-24 19:15:00 Donell [facility] COVID-19 (ID NOW RAPID 2021-11-24 19:15:00 Juliana Marley [facility] TESTING) [facility] Encounters Start End Encounter Admission Attending Care Care Encounter Source Date/Time Date/Time Type Type Clinicians Facility Department ID 2021-10-31 Inpatient [facility] [id number] [facility] 10:08:00 45 2021-10-31 Inpatient [facility] [id number] [facility] 10:08:00 45 2021-12-04 2021-12-04 Orders Doctor BOGDAN [id number] Univers 00:00:00 00:00:00 Only Unassigned, NICHOLAS [id number] ity of [facility] [id number] [facility] [id number] [place] [address] Branch 2021-11-24 2021-11-25 Emergency X ЕЛЕНА [facility] ERT [id number] Univers 12:30:00 04:11:00 [facility] 2021-11-24 2021-11-25 Emergency Juliana Marley [facility] [id number]. [id number] Univers 12:30:00 04:11:00 Елена [facility] [id number] [id number] [facility] [id number] [address] ([facility]) 2021-11-07 2021-11-07 Outpatient [facility] COH PIJFIGK DKX [facility] 00:00:00 00:00:00 [facility]- 125 Results Test Description Test Time Test Comments Results Result Comments Source TROPONIN I 2021-11-24 20:40:02 Test Item Value Reference Range Interpretation Comme nts TROPONIN I (test code = 0.005 ng/mL See_Comment [Au tomated message] The [id number]) system which ge nerated this result tra [...] biotin. Lab Interpretation Normal (test code = 94250-9) [facility]11 19:45:52 Test Item Value Reference Range Interpretation Comments ACETAMINOP (test code = <10.0 10.0-30.0 L [id number]) SENA (test code = SENA) Toxic: Greater than 200 ug/mL @ 4 hour post ingestion or greater than 50 ug/mL @ 12 hour post ingestion Lab Interpretation (test Abnormal code = 65286-1) [facility] (ETOH) [id number] 19:45:47 Test Item Value Reference Range Interpretation Comments ALCOHOL (test code = <10 mg/dL 5314387938) SENA (test code = Toxic Greater than or SENA) equal to 80 mg/dL. NOTE: Whole blood values are approximately 10% to 15% lower than serum and plasma. [facility] (17516) 2021-11-24 19:39:27 Test Item Value Reference Range Interpretation Comments NA (test code = 137 mmol/L 135-145 9669615475) K (test code = 3.7 mmol/L 3.5-5.0 5021686249) CL (test code = 101 mmol/L 98-108 3331675789) CO2 TOTAL (test code 28 mmol/L 23-31 = 3425677658) AGAP (test code = 2-16 5165256095) BUN (test code = 12 mg/dL 7-23 4869063370) GLUCOSE (test code = 84 mg/dL 70-110 5386031695) CREATININE (test code 0.57 mg/dL 0.50-1.04 = 1825646283) TOTAL BILI (test code 0.6 mg/dL 0.1-1.1 = 0371047809) CALCIUM (test code = 9.3 mg/dL 8.6-10.6 8183302090) T PROTEIN (test code 6.4 g/dL 6.3-8.2 = 5064330207) ALBUMIN (test code = 4.0 g/dL 3.5-5.0 2271138244) ALK PHOS (test code = 65 U/L 34-122 1123193023) ALTv (test code = 14 U/L 5-35 1742-6) AST(SGOT) (test code 17 U/L 13-40 = 3173352685) eGFR (test code = mL/min/1.73m2 0465979840) SENA (test code = SENA) Association of [...] or urine or abnormalities in imaging tests). [facility] with [id number] 19:23:39 Test Item Value Reference Range Interpretation [...] (test code = 51.1 fL 39.0-49.9 H 85366-5) RDW-CV (test code = 15.4 % 12.0-15.5 788-0) PLT (test code = See_Comment [Automated 777-3) message] The sy stem which generated this result transmitted reference range : 166 - 358 10*3/ ?L. The reference r levon was not used to interpret this result as normal/abnormal . MPV (test code = 11.3 fL 9.5-12.9 69020-1) NRBC/100 WBC (test See_Comment [Automat ed code = 4694198943) message] The system which generated this result transmitted reference range : 0.0 - 10.0 /100 WBCs. The refer ence range was not u sed to interpret th is result as normal/abnormal . NRBC x10^3 (test code <0.01 See_Comment [Auto mated = 5904094563) message] The s ystem which generated this result transmitted reference range : 10*3/?L. The reference range was not used to interpret this result as normal/abnormal . GRAN MAT (NEUT) % 75.7 % (test code = 770-8) IMM GRAN % (test code 0.50 % = 7103036342) LYMPH % (test code = 17.8 % 736-9) MONO % (test code = 5.3 % 5905-5) EOS % (test code = 0.5 % 713-8) BASO % (test code = 0.2 % 706-2) GRAN MAT x10^3(ANC) 9.73 10*3/uL 1.88-7.09 H (test code = 4201379701) IMM GRAN x10^3 (test 0.06 10*3/uL 0.00-0.06 code = 3194275623) LYMPH x10^3 (test code 2.29 10*3/uL 1.32-3.29 = 731-0) MONO x10^3 (test code 0.68 10*3/uL 0.33-0.92 = 742-7) EOS x10^3 (test code = 0.07 10*3/uL 0.03-0.39 711-2) BASO x10^3 (test code 0.03 10*3/uL 0.01-0.07 = 704-7) Lab Interpretation Abnormal (test code = 16533-5) [facility] Screen,[id number] 10:35:00 Test Item Value Reference Range Interpretation [...] Negative Negative code = UPROP) UA, Urinalysis [id number] 10:35:00 Test Item Value Reference Range Interpretation Comments Color,Urine (test code = Yellow Yellow UCOL) Clarity,Urine (test code = Clear Clear UCLAR) PH,Urine (test code = 6.0 5.5-8.5 UPH.XX) Specific [place],Urine 1.025 1.005-1.030 N (test code = USG) [...] (test code = ULEU) Sars-CoV-2/FLU A/B RSV [id number] 10:26:00 Test Item Value Reference Range Interpretation [...] code = SARS-CoV-2 PCR Result:) Comprehensive Metabolic [id number] 10:20:00 Test Item Value Reference Range Interpretation [...] 62 U/L 46-116 N = ALP) Ethanol [id number] 10:20:00 Test Item Value Reference Range Interpretation [...] Negative Negative HCGQ) Complete Blood Count Auto [id number] 10:20:00 Test Item Value Reference Range Interpretation [...]
[2022-06-22] MEDS ORDERED: NA CHLORIDE 0.9% 100 ML ONE (10:46)
[2022-06-22] MEDS ORDERED: LEVETIRACETAM 500 MG/5 ML VIAL IV ONE (10:46)
--- NOTE | 2022-06-22 10:47 | RAD REPORT ---
EXAM DESCRIPTION: CT - Head C Spine Cap Wo Con - 06/22/2022 10:16 am CLINICAL HISTORY: Trauma, head and neck injury. Chest, abdomen and pelvis pain. fall COMPARISON: No comparisons TECHNIQUE: CT head without contrast. CT cervical spine without contrast with coronal and sagittal reformatted images. CT chest, abdomen and pelvis without contrast with coronal and sagittal reformatted images of the [facility] [place]. All CT scans are performed using dose optimization technique as appropriate and may include automated exposure control or mA/KV adjustment according to patient size. FINDINGS: CT HEAD WITHOUT CONTRAST: No intracranial hemorrhage, hydrocephalus or extra-axial fluid collection. Mild generalized brain atr ophy. No areas of brain edema or midline shift. The paranasal sinuses and mastoids are essentially clear. The calvarium is intact. CT CERVICAL SPINE WITHOUT CONTRAST: No fracture or subluxation. Mild lower cervical degenerative changes. The prevertebral soft tissues a re normal in thickness. CT CHEST, ABDOMEN, PELVIS WITHOUT CONTRAST: NOTE: Lack of contrast is a significant limitation in the assessment of trauma related findings. Spec ifically, solid organ, vascular and bowel evaluation is significantly limited. Mild posterior bibasilar lung atelectasis seen.No significant infiltrate or mass.No pneumothorax or p ericardial/pleural fluid. No evidence of intra-abdominal visceral injury, free fluid or free air is seen within the above detai led limitations. No concerning pelvic findings. Bilateral spondylolysis with 12 mm anterolisthesis at L5-S1, chronic and with significant associated degenerative change at L5-S1. IMPRESSION: Negative for acute traumatic findings within the above detailed limitations.
[2022-06-22] MEDS ORDERED: FOLIC ACID 5 MG/ML VIAL ONE (10:48)
[2022-06-22 10:49] LABS: Absolute Lymphocytes (CBC) 0.7 K/uL (0.7-4.9); Hematocrit 44.4 % (36.0-45.0); Lymphocytes % 12.1 % (15.3-44.8); MCV 90.4 fL (80-100); MPV 9.1 fL (7.6-11.3); RBC Red Blood Cell Count 4.92 M/uL (3.86-4.86)
[2022-06-22 10:51] LABS: Protime INR 1.03
[2022-06-22] MEDS ORDERED: MECLIZINE HCL 12.5 MG TAB ONE (11:09)
--- NOTE | 2022-06-22 11:16 | RAD REPORT ---
EXAM DESCRIPTION: RAD - Chest Single View - 06/22/2022 10:42 am CLINICAL HISTORY: COUGH Chest pain. COMPARISON: Chest Single View dated 06/07/2022 FINDINGS: Portable technique limits examination quality. The lungs are grossly clear. The heart is normal in size. No displaced fractures. IMPRESSION: No acute intrathoracic process suspected.
[2022-06-22 11:39] LABS: Urine Blood 1+ (Negative); Urine Glucose Negative (Negative); Urine Protein Negative (Negative)
--- NOTE | 2022-06-22 12:14 | ER ---
Nurse's Notes [facility] Name: Aleah Cassidy Age: 57 yrs Sex: Female : 1965 Arrival Date: 06/22/2022 Time: 09:38 Bed 15 Private MD: Diagnosis: Bipolar disorder, unspecified;Epileptic seizures related to external causes;Fall on same level, unspecified;Spondylolysis, lumbar region;Tobacco abuse counseling;Tobacco use Presentation: 06/22 09:39 Chief complaint: EMS states: EMS called out for pt having seizure. Witnesses stated [facility] that seizure lasted aprox 1min. Pt is alert at this time, c/o pain to head and neck. Coronavirus screen: Vaccine status: Patient reports receiving the 2nd dose of the covid vaccine. Ebola Screen: Patient negative for fever greater than or equal to 101.5 degrees Fahrenheit, and additional compatible Ebola Virus Disease symptoms Patient denies exposure to infectious person. Patient denies travel to an Ebola-affected area in the 21 days before illness onset. Initial Sepsis Screen: Does the patient meet any 2 criteria? No. Patient's initial sepsis screen is negative. Does the patient have a suspected source of infection? No. Patient's initial sepsis screen is negative. Risk Assessment: Do you want to hurt yourself or someone else? Patient reports no desire to harm self or others. Onset of symptoms was June 22, 2022. 09:39 Method Of Arrival: EMS: [place] [id number] 09:39 Acuity: AMIRAH 3 [facility] Triage Assessment: 09:42 General: Appears in no apparent distress. Behavior is calm, cooperative. Pain: [facility] Complains of pain in base of the skull Pain radiates to right posterior aspect of neck, right side of neck and left posterior aspect of neck Pain currently is 4 out of 10 on a pain scale. Historical: - Allergies: 09:41 cortizone shots; [facility] 09:41 surgical tape; [facility] - PMHx: 09:41 Bipolar disorder; depressive disorder; Fibromyalgia; Schizophrenia; [facility] - PSHx: 09:41 Right hip replacement; [facility] - Immunization history:: Adult Immunizations up to date. - Social history:: Smoking status: Patient reports the use of cigarette tobacco products, smokes one pack cigarettes per day. - Family history:: not pertinent. Screenin:43 Abuse screen: Denies threats or abuse. Denies injuries from another. Nutritional 6 screening: No deficits noted. Tuberculosis screening: No symptoms or risk factors identified. Fall Risk None identified. Assessment: 09:43 General: Appears in no apparent distress. Behavior is calm, cooperative. Pain: 6 Complains of pain in base of the skull. 11:20 Reassessment: Patient and/or family updated on plan of care and expected duration. Pain jh6 level reassessed. Patient is alert, oriented x 3, equal unlabored respirations, skin warm/dry/pink. 11:20 Neuro: Level of Consciousness is awake, alert, obeys commands, Oriented to person, jh6 place, situation, [employer] are equal bilaterally Moves all extremities. Gait is steady, Speech is normal, Facial symmetry appears normal, Pupils are PERRLA, Intact pt reports being very sleepy and generalized aches. states last seizure was 6wks ago but she doesn't know if it was a seizure because she woke up on the floor.. Vital Signs: 09:39 BP 117 / 80; Pulse 85; Resp 17; Temp 98.5; Pulse Ox 98% ; Weight 72.57 kg; Height 5 ft. jh6 4 in. (162.56 cm); Pain 4/10; 11:46 BP 123 / 76; Pulse 80; Resp 17; Pulse Ox 98% ; Pain 3/10; jh6 09:39 Body Mass Index 27.46 (72.57 kg, 162.56 cm) 6 [place] Coma Score: 10:38 Eye Response: spontaneous(4). Verbal Response: oriented(5). Motor Response: obeys [facility] commands(6). Total: 15. ED Course: 09:38 Patient arrived in ED. [facility] 09:39 Donny Solano MD is Attending Physician. [facility] 09:39 Sherri Diamond RN is Primary Nurse. [facility] 09:41 Triage completed. [facility] 09:42 Arm band placed on right wrist. 6 09:43 Patient has correct armband on for positive identification. Bed in low position. Call [facility] light in reach. Side rails up X 1. 10:[address] 6 10:18 CT Traumagram (Head C Spine CAP wo con) In Process Unspecified. EDMS 10:44 XRAY Chest (1 view) In Process Unspecified. EDVA 10:45 Inserted saline lock: 22 gauge in right antecubital area, using aseptic technique. 6 Blood collected. 10:48 No provider procedures requiring assistance completed. [facility] 12:13 Greg Leong MD is Referral Physician. [facility] Administered Medications: 10:43 Drug: Keppra (levETIRAcetam) 1000 mg Route: IV; Rate: per protocol; Site: right jh antecubital; 10:43 Drug: NS 0.9% 1000 ml Route: IV; Rate: 1 bolus; Site: right antecubital; 6 10:43 Drug: Thiamine 100 mg Route: IV; Rate: per protocol; Site: right antecubital; 6 11:01 Drug: Meclizine 50 mg Route: PO; 6 Medication: 10:48 VIS not applicable for this client. [facility] Outcome: 12:13 Discharge ordered by . [facility] 14:20 Patient left the ED. Signatures: Dispatcher [employer] ED[facility] Donny Solano MD MD cha Smirch, Shelby, RN RN Sherri Diamond, RN RN [facility]
--- NOTE | 2022-06-22 12:14 | EDPHYS ---
Physician Documentation [facility] Name: Aleah Cassidy Age: 57 yrs Sex: Female : 1965 Arrival Date: 06/22/2022 Time: 09:38 Bed 15 Private MD: Donny Wong HPI: 06/22 10:34 This 57 yrs old Female presents to ER via EMS with complaints of seizure, samantha fall, 3 rd seizure. 10:34 The patient or guardian reports pain. The complaints affect the left side of the back samantha of head, left occipital area, left base of the skull and right side of the back of head. Context of injury: The problem was sustained at home. Onset: The symptoms/episode began/occurred just prior to arrival. Associated signs and symptoms: Loss of consciousness: This patient experience a loss of consciousness, Pertinent positives: loss of conciousness, neck pain. The patient complains of pain to the left side of the back of head, left occipital area, left base of the skull, right side of the back of head, right occipital area and right base of the skull. The patient describes the headache as aching. Onset: The symptoms/episode began/occurred just prior to arrival. Details of fall: The patient fell from an upright position. Historical: - Allergies: 09:41 cortizone shots; jh6 09:41 surgical tape; jh6 - PMHx: 09:41 Bipolar disorder; depressive disorder; Fibromyalgia; Schizophrenia; jh6 - PSHx: 09:41 Right hip replacement; 6 - Immunization history:: Adult Immunizations up to date. - Social history:: Smoking status: Patient reports the use of cigarette tobacco products, smokes one pack cigarettes per day. - Family history:: not pertinent. ROS: 10:34 Constitutional: Negative for fever, chills, and weight loss, Eyes: Negative for injury, samantha pain, redness, and discharge, ENT: Negative for injury, pain, and discharge, Neck: Negative for injury, pain, and swelling, Cardiovascular: Negative for chest pain, palpitations, and edema, Respiratory: Negative for shortness of breath, cough, wheezing, and pleuritic chest pain, Abdomen/GI: Negative for abdominal pain, nausea, vomiting, diarrhea, and constipation, Back: Negative for injury and pain, : Negative for injury, bleeding, discharge, and swelling, MS/Extremity: Negative for injury and deformity, Skin: Negative for injury, rash, and discoloration, Psych: Negative for depression, anxiety, suicide ideation, homicidal ideation, and hallucinations, Allergy/Immunology: Negative for hives, rash, and allergies, Endocrine: Negative for neck swelling, polydipsia, polyuria, polyphagia, and marked weight changes, Hematologic/Lymphatic: Negative for swollen nodes, abnormal bleeding, and unusual bruising. 10:34 Neuro: Positive for headache, seizure activity, weakness. Exam: 10:34 Constitutional: This is a well developed, well nourished patient who is awake, alert, samantha and in no acute distress. Eyes: Pupils equal round and reactive to light, extra-ocular motions intact. Lids and lashes normal. Conjunctiva and sclera are non-icteric and not injected. Cornea within normal limits. Periorbital areas with no swelling, redness, or edema. ENT: Nares patent. No nasal discharge, no septal abnormalities noted. Tympanic membranes are normal and external auditory canals are clear. Oropharynx with no redness, swelling, or masses, exudates, or evidence of obstruction, uvula midline. Mucous membranes moist. Neck: Trachea midline, no thyromegaly or masses palpated, and no cervical lymphadenopathy. Supple, full range of motion without nuchal rigidity, or vertebral point tenderness. No Meningismus. Chest/axilla: Normal chest wall appearance and motion. Nontender with no deformity. No lesions are appreciated. Cardiovascular: Regular rate and rhythm with a normal S1 and S2. No gallops, murmurs, or rubs. Normal PMI, no JVD. No pulse deficits. Respiratory: Lungs have equal breath sounds bilaterally, clear to auscultation and percussion. No rales, rhonchi or wheezes noted. No increased work of breathing, no retractions or nasal flaring. Abdomen/GI: Soft, non-tender, with normal bowel sounds. No distension or tympany. No guarding or rebound. No evidence of tenderness throughout. Back: No spinal tenderness. No costovertebral tenderness. Full range of motion. Skin: Warm, dry with normal turgor. Normal color with no rashes, no lesions, and no evidence of cellulitis. MS/ Extremity: Pulses equal, no cyanosis. Neurovascular intact. Full, normal range of motion. Neuro: Awake and alert, GCS 15, oriented to person, place, time, and situation. Cranial nerves II-XII grossly intact. Motor strength 5/5 in all extremities. Sensory grossly intact. Cerebellar exam normal. Normal gait. Psych: Awake, alert, with orientation to person, place and time. Behavior, mood, and affect are within normal limits. 11:44 ECG was reviewed by the Attending Physician. [facility] Vital Signs: 09:39 BP 117 / 80; Pulse 85; Resp 17; Temp 98.5; Pulse Ox 98% ; Weight 72.57 kg; Height 5 ft. jh6 4 in. (162.56 cm); Pain 4/10; 11:46 BP 123 / 76; Pulse 80; Resp 17; Pulse Ox 98% ; Pain 3/10; jh6 09:39 Body Mass Index 27.46 (72.57 kg, 162.56 cm) 6 [place] Coma Score: 10:38 Eye Response: spontaneous(4). Verbal Response: oriented(5). Motor Response: obeys [facility] commands(6). Total: 15. MDM: 09:39 Patient medically screened. [facility] 10:38 Differential diagnosis: Contusion of Hematoma on Intracranial bleed- Concussion [facility] cerebral contusion, cerebral vascular accident, hypertensive headache, hypoglycemia, hyponatremia, intracerebral hemorrhage. Differential diagnosis: abrasion, closed head injury, contusion, fracture, multiple trauma, sprain, strain, cerebral vascular accident, drug overdose, cardiac arrhythmia. Data reviewed: vital signs, nurses notes, lab test result(s), EKG, radiologic studies, CT scan, plain films. Data interpreted: edge inker uppers: rate is 85 beats/min, rhythm is regular, Pulse oximetry: on room air is 98 %. Test interpretation: by ED physician or midlevel provider: ECG, plain radiologic studies. Counseling: I had a detailed discussion with the patient and/or guardian regarding: the historical points, exam findings, and any diagnostic results supporting the discharge/admit diagnosis, lab results, radiology results, the need for outpatient follow up, for definitive care, an transportation escort, a neurologist. 06/22 10:04 Order name: Basic Metabolic Panel [facility] 06/22 10:04 Order name: CBC with Diff; Complete Time: 11:[address] [facility] 06/22 10:04 Order name: LFT's [facility] 06/22 10:04 Order name: Magnesium [facility] 06/22 10:04 Order name: NT PRO-BNP [facility] 06/22 10:04 Order name: PT-INR; Complete Time: 11:[address] [facility] 06/22 10:04 Order name: Troponin HS [facility] 06/22 10:04 Order name: XRAY Chest (1 view); Complete Time: 11:[address] [facility] 06/22 10:04 Order name: CT Traumagram (Head C Spine CAP wo con); Complete Time: 11:[address] [facility] 06/22 10:04 Order name: Lipase [facility] 06/22 10:04 Order name: UDS; Complete Time: 12:[address] [facility] 06/22 11:39 Order name: Urine Dipstick-Ancillary; Complete Time: 11:43 EDMS 06/22 10:04 Order name: EKG; Complete Time: 10:[address] [facility] 06/22 10:04 Order name: Cardiac monitoring; Complete Time: 10:[address] [facility] 06/22 10:04 Order name: EKG - Nurse/Tech; Complete Time: 11:[address] [facility] 06/22 10:04 Order name: IV Saline Lock; Complete Time: 10:[address] [facility] 06/22 10:04 Order name: Labs collected and sent; Complete Time: 10:[address] [facility] 06/22 10:04 Order name: O2 Per Protocol; Complete Time: 10:[address] [facility] 06/22 10:04 Order name: O2 Sat Monitoring; Complete Time: 10:[address] [facility] 06/22 10:04 Order name: Seizure Precautions; Complete Time: 10:[address] [facility] EC:44 Rate is 67 beats/min. Rhythm is regular. QRS [place] is Normal. [place] interval is normal. QRS samantha interval is normal. QT interval is normal. No Q waves. T waves are Normal. No ST changes noted. Clinical impression: NSR w/ Non-specific ST/T Changes and No evidence of ischemia. Interpreted by me. Reviewed by me. Administered Medications: 10:43 Drug: Keppra (levETIRAcetam) 1000 mg Route: IV; Rate: per protocol; Site: right [facility] antecubital; 10:43 Drug: NS 0.9% 1000 ml Route: IV; Rate: 1 bolus; Site: right antecubital; [facility] 10:43 Drug: Thiamine 100 mg Route: IV; Rate: per protocol; Site: right antecubital; [facility] 11:01 Drug: Meclizine 50 mg Route: PO; jh6 Disposition Summary: 06/22/22 12:13 Discharge Ordered Location: Home samantha Problem: new samantha Symptoms: have improved samantha Condition: Stable samantha Diagnosis - Bipolar disorder, unspecified samantha - Epileptic seizures related to external causes samantha - Fall on same level, unspecified samantha - Spondylolysis, lumbar region samantha - Tobacco abuse counseling samantha - Tobacco use samantha Followup: samantha - With: Private Physician - When: 2 - 3 days - Reason: Recheck today's complaints, Continuance of care, Re-evaluation by your physician Followup: samantha - With: - When: 2 - 3 days - Reason: Recheck today's complaints, Continuance of care, Re-evaluation by your physician Discharge Instructions: - Discharge Summary Sheet samantha - Seizure, Adult samantha - Seizure, Adult, [id number] samantha - Supporting Someone With Bipolar Disorder samantha Forms: - Medication Reconciliation Form samantha - Thank You Letter samantha - Antibiotic Education samantha - Prescription Opioid Use samantha Prescriptions: - Keppra 500 mg Oral Tablet - take 1 tablet by ORAL route every 12 hours; 30 tablet; Refills: 0, Product [facility] Selection Permitted - Tylenol 325 mg Oral Tablet - take 2 tablets by ORAL route every 6 hours as needed; 1 bottle; Refills: 0, samantha Product Selection Permitted Signatures: Dispatcher [employer] Donny Varela MD MD cha Hastedt, Jennifer RN RN jh6
[2022-06-22 12:29] LABS: ALT/SGPT 16 U/L (12-78); AST/SGOT 11 U/L (15-37); Albumin 3.1 g/dL (3.4-5.0); Alkaline Phosphatase 55 U/L (45-117); BUN Blood Urea Nitrogen 6 mg/dL (7-18); Bicarbonate 29 mmol/L (21-32); Bilirubin Total 0.2 mg/dL (0.2-1.0); Glomerular Filtration Rate 99 ml/min (=/>90); Glucose Level 99 mg/dL (74-106); Lipase 49 U/L (73-393); NT PRO-BNP 176 pg/mL (<125); Potassium 4.1 mmol/L (3.5-5.1); Protein, Total 6.4 g/dL (6.4-8.2); Sodium Level 139 mmol/L (136-145)
[2022-06-22 12:34] LABS: Bilirubin Direct < 0.1 mg/dL (0-0.2)
[2022-06-22 12:35] LABS: Barbiturates NEGATIVE (NEGATIVE); Benzodiazepines NEGATIVE (NEGATIVE); Cocaine NEGATIVE (NEGATIVE); METHAMPHETAM NEGATIVE (NEGATIVE); Methadone NEGATIVE (NEGATIVE); Opiates NEGATIVE (NEGATIVE); Phencyclidine NEGATIVE (NEGATIVE); THC Cannibis POSITIVE (NEGATIVE)
[2022-06-22 12:47] LABS: Troponin High Sensitivity 4.8 pg/mL (<58.9)
[2022-06-22 15:02] VITALS: TEMP 98.5; O2SAT 98
[2022-06-22 15:06] VITALS: BP 123/76
--- NOTE | 2022-06-25 15:11 | EKG ---
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
== END 2022-06-22 14:20 | disposition home or self-care (01) ==
LOC: ER 09:36
DX: G40.509 Epileptic seizures related to external causes, not intractable, without status epilepticus (principal); F31.9 Bipolar disorder, unspecified; M43.06 Spondylolysis, lumbar region; W18.30XA Fall on same level, unspecified, initial encounter; Z72.0 Tobacco use; Z71.6 Tobacco abuse counseling
CPT/HCPCS: 93005; 85025; 80048; 36415; 83735; 85610; 80076; 81003; 84484; 83690; 83880; 80307; 70450; 71250; 72125; 71045; 96375; 96374; 99284; J8597; J1953

== ENCOUNTER 2022-07-11 14:05 | Emergency (ER) | payer OTHER ==
--- OUTSIDE RECORDS SUMMARY | 2022-07-11 14:09 | XMS REPORT | Continuity of Care Document ---
:1965 Author Organization [facility] t Address [address] [place] [address] Care Team Providers Name Role Phone Pcp, Patient Does Not Have A Primary Care Physician +[id number] Doctor Unassigned, Karns Attending Clinician Unavailable JACK CHRISTIANSEN Attending Clinician Unavailable Juliana Collado Attending Clinician Jack Christiansen MD Attending Clinician Payers Payer Name Policy Type Policy Number Effective Date Expiration Date S ource Problems Condition Condition Condition Status Onset Resolution Last Treating Co mments Source Name Details Category Date Date Treatment Clinician Date No known No known Disease Unive rs active active ity of problems problems [facility] Allergies, Adverse Reactions, Alerts Allergy Allergy Status Severity Reaction(s) Onset Inactive Treating Comm ents Source Name Type Date Date Clinician No Known DA Active U [facility] Drug 1-18 Allergie 00:00: s 00 NO KNOWN Drug Active Univers ALLERGIE Class ity of S [facility] Social History Social Habit Start Date Stop Date Quantity Comments Source Exposure to Not sure [facility] SARS-CoV-2 (event) Medica l Branch Sex Assigned At [address] 1965 [facility] 00:00:00 00:00:00 [facility] Smoking Status Start Date Stop Date Source Unknown if ever smoked [facility] Medications Ordered Filled Start Stop Current Ordering Indication Dosage Frequency Signature Comments Components Source Medication Medication Date Date Medication? Clinician (SIG) Name Name take 2 tab No by mouth 9-13 every 6 00:00: hours 00 Risperdal 1 No 1mg mg tablet 8- 00:00: 00 Risperdal 1 2-0 No 1mg mg tablet 8- 00:00: 00 Trileptal 2022-0 No 1mg 150 mg 8-02 tablet 00:00: 00 Dose 2022-0 No Unknown 8- 00:00: 00 Risperdal 1 2022-0 No 1mg mg tablet 7- 00:00: 00 Dose 2022-0 No Unknown 7- 00:00: 00 Dose 2022-0 No Unknown 6-30 00:00: 00 Dose 2022-0 No Unknown 6-30 00:00: 00 Risperdal 2 2-0 No 1mg mg tablet 6-30 00:00: 00 Dose 2022-0 No Unknown 6-24 00:00: 00 amoxicillin 2022-0 No 1mg 125 mg 6-14 chewable 00:00: tablet 00 Trileptal 2022-0 No 1mg 150 mg 5-31 tablet 00:00: 00 Risperdal 1 2022-0 No 1mg mg tablet 5-31 00:00: 00 Trileptal 2022-0 No 1mg 150 mg 5-03 tablet 00:00: 00 hydroxyzine 2022-0 No 1mg HCl 10 mg 5-03 tablet 00:00: 00 Risperdal 1 2022-0 No 1mg mg tablet 5-03 00:00: 00 Dose 2022-0 No Unknown 4-27 00:00: 00 Dose 2022-0 No Unknown 4-27 00:00: 00 Dose 2022-0 No Unknown 4-27 00:00: 00 Dose 2022-0 No Unknown 4-27 00:00: 00 Dose 2022-0 No Unknown 4-27 00:00: 00 Dose 2022-0 No Unknown 4-27 00:00: 00 Dose 2022-0 No Unknown 4-27 00:00: 00 hydroxyzine 2022-0 No 1mg HCl 10 mg 4-13 tablet 00:00: 00 Trileptal 2022-0 No 1mg 150 mg 4-13 tablet 00:00: 00 Risperdal 1 2022-0 No 1mg mg tablet 4-13 00:00: 00 Dose 2022-0 No Unknown 4-13 00:00: 00 Dose 2022-0 No Unknown 4-13 00:00: 00 Dose 2022-0 No Unknown 4-13 00:00: 00 Dose 2022-0 No Unknown 4-13 00:00: 00 Dose 2022-0 No Unknown 4-13 00:00: 00 Dose 2022-0 No Unknown 4-13 00:00: 00 Dose 2022-0 No Unknown 4-13 00:00: 00 Dose 2022-0 No Unknown 3-30 00:00: 00 Dose 2022-0 No Unknown 3-30 00:00: 00 risperidone 2022-0 No 1mg 0.5 mg 3-30 tablet 00:00: 00 Dose 2022-0 No Unknown 3-23 00:00: 00 Dose 2022-0 No Unknown 3-23 00:00: 00 Dose 2022-0 No Unknown 3-23 00:00: 00 Dose 2022-0 No Unknown 3-23 00:00: 00 Dose 2022-0 No Unknown 3-23 00:00: 00 Dose 2022-0 No Unknown 3-23 00:00: 00 Dose 2022-0 No Unknown 3-23 00:00: 00 Dose 2022-0 No Unknown 3-23 00:00: 00 Dose 2022-0 No Unknown 3-23 00:00: 00 hydrochloro 2-0 No 1mg thiazide 3-23 12.5 mg 00:00: tablet 00 losartan 50 2-0 No 15mg mg tablet 3-23 00:00: 00 amlodipine 2-0 No 1mg 10 mg 3-23 tablet 00:00: 00 buspirone 5 2-0 No 1mg mg tablet 3-23 00:00: 00 hydroxyzine 2-0 No 1mg HCl 10 mg 3-23 tablet 00:00: 00 sertraline 2-0 No 1mg 100 mg 3-23 tablet 00:00: 00 risperidone 2022-0 No 1mg 0.5 mg 3-23 tablet 00:00: 00 No known 2-0 No Univers medications 2-12 ity of 19:27: [address] Branch amLODIPine 2-0 Yes 5mg 5 mg, Univer s (NORVASC) 2-12 Oral, ity of tablet 5 mg 15:00: DAILY, Segundo caraballo 00 First dose Medical on Sat Branch 11/25/21 at 0900, Until Discontinu ed, [...] Isaak as 00 :00 dose, On Medical Sat Branch 11/24/21 at 1745, Routine cloNIDine 2021- No .1mg 0.1 mg, Univ ers (CATAPRES) 11-24 Oral, ity of tablet 0.1 22:00: 21:00 ONCE, 1 Isaak as mg 00 :00 dose, On Medical Sat Branch 11/24/21 at 1600, STAT Vital Signs Vital Name Observation Time Observation Value Comments Source Systolic blood 2021-11-25 09:00:00 146 mm[Hg] [facility] Diastolic blood 2021-11-25 09:00:00 89 mm[Hg] [facility] Heart rate 2021-11-25 09:00:00 78 /min [facility] Body temperature 2021-11-25 09:00:00 37.06 [facility] Respiratory rate 2021-11-25 09:00:00 16 /min [facility] Oxygen saturation in 2021-11-25 09:00:00 97 /min [facility] Arterial blood by [facility] Pulse oximetry [facility] Body height 2021-11-24 18:28:00 165.1 cm [facility] Body weight 2021-11-24 18:28:00 68.04 kg [facility] BMI 2021-11-24 18:28:00 24.96 kg/m2 [facility] Weight Measured 2022-06-26 11:07:00 133.60 pounds Height Measured 2022-06-26 11:07:00 63.50 inches Body Temperature 2022-06-26 11:07:00 98.00 degrees Heart Rate 2022-06-26 11:07:00 104.00 /min Respiratory Rate 2022-06-26 11:07:00 16.00 /min BP Systolic 2022-06-26 11:07:00 136 mm[Hg] BP Diastolic 2022-06-26 11:07:00 94 mm[Hg] BP Systolic 2022-04-25 11:36:00 131 mm[Hg] BP Diastolic 2022-04-25 11:36:00 92 mm[Hg] Weight Measured 2022-04-25 11:36:00 144.40 pounds Height Measured 2022-04-25 11:36:00 63.50 inches Body Temperature 2022-04-25 11:36:00 98.30 degrees Heart Rate 2022-04-25 11:36:00 99.00 /min Respiratory Rate 2022-04-25 11:36:00 18.00 /min BP Systolic 2022-04-22 08:24:00 BP Diastolic 2022-04-22 08:24:00 Weight Measured 2022-04-22 08:24:00 156.00 pounds Height Measured 2022-04-22 08:24:00 63.50 inches Body Temperature 2022-04-22 08:24:00 Heart Rate 2022-04-22 08:24:00 Respiratory Rate 2022-04-22 08:24:00 BP Systolic 2022-01-10 14:58:00 BP Diastolic 2022-01-10 14:58:00 Weight Measured 2022-01-10 14:58:00 Height Measured 2022-01-10 14:58:00 Body Temperature 2022-01-10 14:58:00 Heart Rate 2022-01-10 14:58:00 Respiratory Rate 2022-01-10 14:58:00 BP Systolic 2022-01-10 14:22:00 143 mm[Hg] BP Diastolic 2022-01-10 14:22:00 92 mm[Hg] Weight Measured 2022-01-10 14:22:00 152.00 pounds Height Measured 2022-01-10 14:22:00 63.00 inches Body Temperature 2022-01-10 14:22:00 98.20 degrees Heart Rate 2022-01-10 14:22:00 76.00 /min Respiratory Rate 2022-01-10 14:22:00 18.00 /min BP Systolic 2022-01-03 11:40:00 147 mm[Hg] BP Diastolic 2022-01-03 11:40:00 103 mm[Hg] Weight Measured 2022-01-03 11:40:00 157.80 pounds Height Measured 2022-01-03 11:40:00 63.00 inches Body Temperature 2022-01-03 11:40:00 98.00 degrees Heart Rate 2022-01-03 11:40:00 86.00 /min Respiratory Rate 2022-01-03 11:40:00 18.00 /min Procedures Procedure Date / Time Performing Clinician Source Performed EXTERNAL PROVIDER 2021-12-04 06:01:00 Doctor Unassigned, No [facility] RECORDS Name Medical Branch URINE DRUG (IMMUNOASSAY) 2021-11-24 19:35:00 Juliana Marley [facility] DRUG Medical [facility] [address] SCREEN W/O REFLEX COMP. METABOLIC PANEL 2021-11-24 19:15:00 Juliana Marley [facility] ([id number]) Medical Branch ACETAMINOPHEN 2021-11-24 19:15:00 [facility] ETHANOL 2021-11-24 19:15:00 [facility] CBC WITH DIFF 2021-11-24 19:15:00 [facility] COVID-19 (ID NOW RAPID 2021-11-24 19:15:00 Juliana Marley [facility] TESTING) Medical Branch TROPONIN I 2021-11-24 19:15:00 [facility] Plan of Care Planned Activity Planned Date Details Comments Source Goal Plan of Care Note [code = 91417-0] Goal Plan of Care Note [code = 30620-5] Goal Plan of Care Note [code = 23716-3] Goal Plan of Care Note [code = 00345-7] Goal Plan of Care Note [code = 56174-0] Goal Plan of Care Note [code = 98165-5] Encounters Start End Encounter Admission Attending Care Care Encounter Source Date/Time Date/Time Type Type Clinicians Facility Department ID 2021-10-31 Inpatient [facility] [id number] [facility] 10:08:00 45 2021-10-31 Inpatient [facility] [id number] [facility] 10:08:00 45 2022-06-26 2022-06-26 Outpatient [id number] 00:00:00 00:00:00 Visit [id number] 2021-12-04 2021-12-04 Orders Doctor BOGDAN [id number] [facility] 00:00:00 00:00:00 Only Unassigned, [place] [id number] [facility] [id number] [facility] [id number] [address] 2021-11-24 2021-11-25 Emergency [facility] [id number] Univers 12:30:00 04:11:00 [facility] 2021-11-24 2021-11-25 Emergency Juliana Marley [facility] 1.2.840. [id number] Univers 12:30:00 04:11:00 [facility] [id number] ity [facility] [id number] [facility] [id number] [address] ([facility]) 2021-11-07 2021-11-07 Outpatient [facility] PIJFIGK DKX COH 00:00:00 00:00:00 RF- 125 Results Test Description Test Time Test Comments Results Result Comments Source TROPONIN I 2021-11-24 20:40:02 Test Item Value Reference Range Interpretation Comme nts TROPONIN I (test code = 0.005 ng/mL See_Comment [Au tomated message] The [id number]) system which ge nerated this result tra [...] biotin. Lab Interpretation Normal (test code = 52494-4) [facility] 19:45:52 Test Item Value Reference Range Interpretation Comments ACETAMINOP (test code = <10.0 10.0-30.0 L 3532202855) SENA (test code = SENA) Toxic: Greater than 200 ug/mL @ 4 hour post ingestion or greater than 50 ug/mL @ 12 hour post ingestion Lab Interpretation (test Abnormal code = 76690-2) [facility]OH[facility] [id number] 19:45:47 Test Item Value Reference Range Interpretation Comments ALCOHOL (test code = <10 mg/dL 8579161435) SENA (test code = Toxic Greater than or SENA) equal to 80 mg/dL. NOTE: Whole blood values are approximately 10% to 15% lower than serum and plasma. [facility] ([facility]646) 2021-11-24 19:39:27 Test Item Value Reference Range Interpretation Comments NA (test code = 137 mmol/L 135-145 5647392620) K (test code = 3.7 mmol/L 3.5-5.0 5684845536) CL (test code = 101 mmol/L 98-108 5288278047) CO2 TOTAL (test code 28 mmol/L 23-31 = 1872816681) AGAP (test code = 2-16 7362484269) BUN (test code = 12 mg/dL 7-23 2991719204) GLUCOSE (test code = 84 mg/dL 70-110 4783164518) CREATININE (test code 0.57 mg/dL 0.50-1.04 = 9017921078) TOTAL BILI (test code 0.6 mg/dL 0.1-1.1 = 7327064432) CALCIUM (test code = 9.3 mg/dL 8.6-10.6 2633841692) T PROTEIN (test code 6.4 g/dL 6.3-8.2 = 4644356710) ALBUMIN (test code = 4.0 g/dL 3.5-5.0 0335196038) ALK PHOS (test code = 65 U/L 34-122 4565058164) ALTv (test code = 14 U/L 5-35 1742-6) AST(SGOT) (test code 17 U/L 13-40 = 4625438006) eGFR (test code = mL/min/1.73m2 2567631894) SENA (test code = SENA) Association of [...] or urine or abnormalities in imaging tests). [facility] with [id number] 19:23:39 Test Item Value Reference Range Interpretation [...] (test code = 51.1 fL 39.0-49.9 H 70431-4) RDW-CV (test code = 15.4 % 12.0-15.5 788-0) PLT (test code = See_Comment [Automated 777-3) message] The sy stem which generated this result transmitted reference range : 166 - 358 10*3/ ?L. The reference r levon was not used to interpret this result as normal/abnormal . MPV (test code = 11.3 fL 9.5-12.9 70835-8) NRBC/100 WBC (test See_Comment [Automat ed code = 4677851407) message] The system which generated this result transmitted reference range : 0.0 - 10.0 /100 WBCs. The refer ence range was not u sed to interpret th is result as normal/abnormal . NRBC x10^3 (test code <0.01 See_Comment [Auto mated = 5113916071) message] The s ystem which generated this result transmitted reference range : 10*3/?L. The reference range was not used to interpret this result as normal/abnormal . GRAN MAT (NEUT) % 75.7 % (test code = 770-8) IMM GRAN % (test code 0.50 % = 0849627278) LYMPH % (test code = 17.8 % 736-9) MONO % (test code = 5.3 % 5905-5) EOS % (test code = 0.5 % 713-8) BASO % (test code = 0.2 % 706-2) GRAN MAT x10^3(ANC) 9.73 10*3/uL 1.88-7.09 H (test code = 3612450802) IMM GRAN x10^3 (test 0.06 10*3/uL 0.00-0.06 code = 8827843621) LYMPH x10^3 (test code 2.29 10*3/uL 1.32-3.29 = 731-0) MONO x10^3 (test code 0.68 10*3/uL 0.33-0.92 = 742-7) EOS x10^3 (test code = 0.07 10*3/uL 0.03-0.39 711-2) BASO x10^3 (test code 0.03 10*3/uL 0.01-0.07 = 704-7) Lab Interpretation Abnormal (test code = 01708-7) [facility],[id number] 10:35:00 Test Item Value Reference Range Interpretation [...] Negative Negative code = UPROP) UA, Urinalysis [id number] 10:35:00 Test Item Value Reference Range Interpretation Comments Color,Urine (test code = Yellow Yellow UCOL) Clarity,Urine (test code = Clear Clear UCLAR) PH,Urine (test code = 6.0 5.5-8.5 UPH.XX) Specific [place],Urine 1.025 1.005-1.030 N (test code = USG) [...] (test code = ULEU) Sars-CoV-2/FLU A/B RSV [id number] 10:26:00 Test Item Value Reference Range Interpretation [...] code = SARS-CoV-2 PCR Result:) Comprehensive Metabolic [id number] 10:20:00 Test Item Value Reference Range Interpretation [...] 62 U/L 46-116 N = ALP) Ethanol [id number] 10:20:00 Test Item Value Reference Range Interpretation [...] Negative Negative HCGQ) Complete Blood Count Auto [id number] 10:20:00 Test Item Value Reference Range Interpretation [...]
[2022-07-11] MEDS ORDERED: LEVETIRACETAM 500 MG/5 ML VIAL IV ONE (14:30)
[2022-07-11] MEDS ORDERED: NA CHLORIDE 0.9% 1,000 ML ONE ×2 (14:31→23:12)
[2022-07-11 14:40] LABS: Absolute Lymphocytes (CBC) 1.3 K/uL (0.7-4.9); Hematocrit 51.3 % (36.0-45.0); Lymphocytes % 8.7 % (15.3-44.8); MCV 89.5 fL (80-100); MPV 9.4 fL (7.6-11.3); RBC Red Blood Cell Count 5.73 M/uL (3.86-4.86)
[2022-07-11 14:46] LABS: Protime INR 1.09
--- NOTE | 2022-07-11 14:50 | RAD REPORT ---
EXAM DESCRIPTION: CT - Head Brain Wo Cont - 07/11/2022 2:37 pm CLINICAL HISTORY: Seizure COMPARISON: June 22, 2022 TECHNIQUE: Computed axial tomography of the head was obtained. IV contrast was not requested. All CT scans are performed using dose optimization technique as appropriate and may include automated exposure control or mA/KV adjustment according to patient size. FINDINGS: An intracranial bleed is not seen . The ventricles are normal in caliber. No significant hypodense areas within the brain visualized No extra-axial fluid collection is noted. Fluid within the sinuses/ mastoids is not seen. IMPRESSION: No acute intracranial abnormality is seen. If patient's symptoms persist MRI of the bra in would be recommended.
[2022-07-11 15:04] LABS: ALT/SGPT 14 U/L (12-78); AST/SGOT 6 U/L (15-37); Albumin 3.8 g/dL (3.4-5.0); Alkaline Phosphatase 62 U/L (45-117); BUN Blood Urea Nitrogen 13 mg/dL (7-18); Bicarbonate 29 mmol/L (21-32); Bilirubin Direct 0.1 mg/dL (0-0.2); Bilirubin Total 0.4 mg/dL (0.2-1.0); Glomerular Filtration Rate 90 ml/min (=/>90); Glucose Level 111 mg/dL (74-106); Potassium 3.9 mmol/L (3.5-5.1); Protein, Total 7.5 g/dL (6.4-8.2); Sodium Level 137 mmol/L (136-145)
[2022-07-11] MEDS ORDERED: LORazepam 2 MG/ML VIAL ONE (15:23)
[2022-07-11 15:42] LABS: Urine Blood Trace-intact (Negative); Urine Glucose Negative (Negative); Urine Protein 2+ (Negative); Urine Specific Gravity 1.025 (1.005-1.030); Urine pH 6.5 (5.0-7.0)
[2022-07-11 16:06] LABS: Barbiturates NEGATIVE (NEGATIVE); Benzodiazepines NEGATIVE (NEGATIVE); Cocaine NEGATIVE (NEGATIVE); METHAMPHETAM NEGATIVE (NEGATIVE); Methadone NEGATIVE (NEGATIVE); Opiates NEGATIVE (NEGATIVE); Phencyclidine NEGATIVE (NEGATIVE); THC Cannibis POSITIVE (NEGATIVE)
[2022-07-11 17:21] LABS: SARS-CoV-2 Antigen Rapid Res Negative (Negative)
[2022-07-11] MEDS ORDERED: LIDOCAINE 1% MPF 30 ML VIAL ONE (18:54)
[2022-07-11] MEDS ORDERED: DOXYCYCLINE 100 MG CAP PO ONE (19:09)
[2022-07-11] MEDS ORDERED: NA CHLORIDE 0.9% 0 ML ONE (23:07)
[2022-07-12] MEDS ORDERED: LORAZEPAM 1 MG TABLET ONE (06:12)
--- NOTE | 2022-07-12 07:26 | EDPHYS ---
Physician Documentation [facility] Name: Aleah Cassidy Age: 57 yrs Sex: Female : 1965 Arrival Date: 07/11/2022 Time: 14:15 Bed 16 Private MD: ED Physician Sai Jack HPI: 07/11 14:16 This 57 yrs old Female presents to ER via EMS with complaints of seizure. jmm 14:16 This is a 57 year old female with a history of bipolar, schizophrenia, depression, jmm epilepsy that presents to the ED with a witnessed seizure by one of her roommates. Patient admits to not taking her home medications today. Denies chest pain. Also complains of wound to her left forearm. . JACK SPINNER: 14:45 LMP 06/21/2022 ko1 Historical: - Allergies: 15:07 cortizone shots; ko1 15:07 surgical tape; ko1 - Home Meds: 15:08 Risperdal Oral [Active]; Trileptal Oral [Active]; ko1 - PMHx: 15:08 Bipolar disorder; depressive disorder; Fibromyalgia; Schizophrenia; ko1 - PSHx: 15:08 Right hip replacement; ko1 - Immunization history:: Adult Immunizations unknown. - Social history:: Smoking status: Patient reports the use of cigarette tobacco products, smokes one pack cigarettes per day. ROS: 14:16 Constitutional: Negative for fever, chills, and weight loss, Cardiovascular: Negative jmm for chest pain, palpitations, and edema, Respiratory: Negative for shortness of breath, cough, wheezing, and pleuritic chest pain. 14:16 Neuro: Positive for seizure activity. 14:16 Psych: Positive for suicidal ideation. 14:16 All other systems are negative. Exam: 14:16 Constitutional: This is a well developed, well nourished patient who is awake, alert, jmm and in no acute distress. Head/Face: atraumatic. Eyes: EOMI, no conjunctival erythema appreciated ENT: Moist Mucus Membranes Neck: Trachea midline, Supple Chest/axilla: Normal chest wall appearance and motion. Cardiovascular: Regular rate and rhythm. No edema appreciated Respiratory: Normal respirations, no respiratory distress appreciated Abdomen/GI: Non distended Back: Normal ROM Skin: General appearance color normal MS/ Extremity: Moves all extremities, no obvious deformities appreciated, no edema noted to the lower extremities Neuro: Awake and alert 14:16 Skin: small abscess noted to the left forearm with drainage. 14:16 Psych: Behavior/mood is anxious, Affect is flat, Oriented to person, place, time, Patient having thoughts of suicide. Denies suicidal plan. 14:30 ECG was reviewed by the Attending Physician. santy Vital Signs: 15:08 BP 124 / 83; Pulse 85; Pulse Ox 100% ; Weight 60.33 kg; Height 5 ft. 5 in. (165.10 cm); ko1 18:06 BP 109 / 80; Pulse Ox 95% ; ko1 19:45 BP 120 / 80; Pulse 60; Resp 17; Pulse Ox 100% ; jj7 20:48 BP 119 / 74; Pulse 20; Resp 76; Pulse Ox 97% ; jj7 21:59 BP 115 / 73; Pulse 74; Resp 17; Pulse Ox 98% ; jj7 23:00 BP 83 / 50; Pulse 62; Resp 18; Pulse Ox 98% ; jj7 07/12 00:04 BP 99 / 65; Pulse 61; Resp 20; Pulse Ox 98% ; jj7 01:10 BP 105 / 64; Pulse 60; Resp 19; Pulse Ox 96% ; Pain 0/10; jj7 02:13 BP 118 / 71; Pulse 72; Resp 19; Pulse Ox 96% ; jj7 03:15 BP 102 / 71; Pulse 67; Resp 16; Pulse Ox 97% ; jj7 06:25 Temp 98.8; mw2 09:00 BP 129 / 74; Pulse 78; Resp 16; Temp 98.0; Pulse Ox 99% ; Pain 0/10; ko1 07/11 15:08 Body Mass Index 22.13 (60.33 kg, 165.10 cm) ko1 Procedures: 07/11 19:07 I \T\ D: Incision and drainage was performed for an abscess of the left arm Prepped with ankur Betadine, Anesthetized with 5 ml's 1% Lidocaine. Incised with #11 blade. Drained purulent fluid. Dressing: sterile 4x4 gauze, non-Adherent dressing, the patient tolerated the procedure well. MDM: 14:16 Patient medically screened. ankur 18:53 Data reviewed: vital signs, nurses notes. Counseling: I had a detailed discussion with ankur the patient and/or guardian regarding: the historical points, exam findings, and any diagnostic results supporting the discharge/admit diagnosis, the need for outpatient follow up, to return to the emergency department if symptoms worsen or persist or if there are any questions or concerns that arise at home. 21:39 ED course: Patient revealed to RN that she has thought of suicide for months. Patient santym denies a plan. [facility] screener evaluated the patient. Has concerns due to unstable home situation. States only a matter of time until she acts on thoughts. Recommends inpatient. . 07/12 00:59 Transition of care: After a detail discussion of the patient's case, care is [facility] transferred to Magdalena Rodriguez MD. 07/11 14:16 Order name: Acetaminophen; Complete Time: 15:08 [facility] 07/11 14:16 Order name: Basic Metabolic Panel; Complete Time: 15:08 [facility] 07/11 14:16 Order name: CBC with Diff; Complete Time: 14:44 [facility] 07/11 14:16 Order name: ETOH Level; Complete Time: 15:08 [facility] 07/11 14:16 Order name: Hepatic Function; Complete Time: 15:08 [facility] 07/11 14:16 Order name: PT-INR; Complete Time: 14:48 [facility] 07/11 14:16 Order name: Ptt, Activated; Complete Time: 14:48 [facility] 07/11 14:16 Order name: Salicylate; Complete Time: 15:12 [facility] 07/11 14:16 Order name: Urine Drug Screen; Complete Time: 16:07 [facility] 07/11 14:16 Order name: CT Head Brain wo Cont; Complete Time: 14:52 [facility] 07/11 15:43 Order name: Urine Dipstick-Ancillary; Complete Time: 15:48 [facility] 07/11 16:43 Order name: SARS RAPID; Complete Time: 17:21 07/11 14:16 Order name: EKG; Complete Time: 14:17 [facility] 07/11 14:16 Order name: EKG - Nurse/Tech; Complete Time: 14:29 [facility] 07/11 14:16 Order name: IV Saline Lock; Complete Time: 14:37 [facility] 07/11 14:16 Order name: Labs collected and sent; Complete Time: 14:37 [facility] 07/11 14:16 Order name: Suicide Screening ([place]); Complete Time: 15:47 [facility] 07/11 14:16 Order name: Urine Dipstick-Ancillary (obtain specimen); Complete Time: 15:36 [facility] 07/11 18:39 Order name: Diet Regular; Complete Time: 18:39 [facility] 07/11 19:08 Order name: Misc. Order; Complete Time: 21:58 [facility] 07/11 19:08 Order name: Wound Care; Complete Time: 21:58 [facility] 07/12 08:07 Order name: Finger Food EDMS EC/28 14:30 Rate is 71 beats/min. Rhythm is regular. QRS [place] is Normal. VT interval is normal. QRS jmm interval is normal. QT interval is normal. No Q waves. T waves are Normal. No ST changes noted. Reviewed by me. Administered Medications: 07/12 01:42 Discontinued: NS 0.9% 1000 ml IV at 1 bolus Per protocol; 1000 mL bolus [facility] 07/11 14:47 Drug: Keppra (levETIRAcetam) 1000 mg Route: IV; Rate: calculated rate; Site: right ko1 antecubital; 15:31 Drug: Ativan (LORazepam) 0.5 mg Route: IVP; Site: right antecubital; ko 19:07 Drug: Lidocaine (1 %) 20 ml Volume: 20 ml; Route: Infiltration; ko 19:07 Drug: Doxycycline 100 mg Route: PO; ko1 23:15 Drug: NS 0.9% 1000 ml Route: IV; Rate: 1 bolus; Site: right antecubital; [facility] 07/12 06:15 Drug: Ativan (LORazepam) 1 mg Route: PO; Disposition: 19:31 Co-signature as Attending Physician, Sai Jack MD. rn Disposition Summary: 07/12/22 07:25 Transfer Ordered Transfer Location: Psych Facility [facility] Reason: Higher level of care jr11 Condition: Stable jr11 Problem: an acute exacerbation jr11 Symptoms: are unchanged jr11 Accepting Physician: Psych(07/12/22 09:34) ko1 Diagnosis - Suicidal ideations jr11 Forms: - Medication Reconciliation Form jr11 - SBAR form jr11 Signatures: Dispatcher [employer] Donny Varela MD MD cha Mickail, Joel, PA PA Sai Peña MD MD rn Jc Vasquez MD MD jr11 Alma Sheppard RN RN ko1 Antoinette Rhoades RN RN jj7 Corrections: (The following items were deleted from the chart) :34 07:25 Psych clemente ko1
--- NOTE | 2022-07-12 07:26 | ER ---
Nurse's Notes [facility] Name: Aleah Cassidy Age: 57 yrs Sex: Female : 1965 Arrival Date: 07/11/2022 Time: 14:15 Bed 16 Private MD: Diagnosis: Suicidal ideations Presentation: 07/11 14:45 Chief complaint: EMS states: patients roommate said she was unresponsive for about 10 ko1 minutes, but she was awake. Coronavirus screen: At this time, the client does not indicate any symptoms associated with coronavirus-19. Ebola Screen: No symptoms or risks identified at this time. Initial Sepsis Screen: Does the patient meet any 2 criteria? No. Patient's initial sepsis screen is negative. Does the patient have a suspected source of infection? No. Patient's initial sepsis screen is negative. Risk Assessment: Do you want to hurt yourself or someone else? Patient reports no desire to harm self or others. Onset of symptoms was July 11, 2022 at 14:00. 14:45 Method Of Arrival: EMS: [facility] ko1 14:45 Acuity: AMIRAH 3 ko1 Triage Assessment: 14:45 General: Appears in no apparent distress. comfortable. ko1 [employer]: 14:45 LMP 06/21/2022 ko1 Historical: - Allergies: 15:07 cortizone shots; ko1 15:07 surgical tape; ko1 - Home Meds: 15:08 Risperdal Oral [Active]; Trileptal Oral [Active]; ko1 - PMHx: 15:08 Bipolar disorder; depressive disorder; Fibromyalgia; Schizophrenia; ko1 - PSHx: 15:08 Right hip replacement; ko1 - Immunization history:: Adult Immunizations unknown. - Social history:: Smoking status: Patient reports the use of cigarette tobacco products, smokes one pack cigarettes per day. Screenin:00 Abuse screen: Denies threats or abuse. Denies injuries from another. Nutritional ko1 screening: No deficits noted. Tuberculosis screening: No symptoms or risk factors identified. Fall Risk None identified. IV access (20 points). Assessment: 15:00 General: Appears comfortable, unkempt, Behavior is cooperative, appropriate for age, ko1 anxious. 15:00 Pain: Complains of pain in forehead. ko1 16:42 Reassessment: notified [facility] , will contact screener. iw 19:45 Reassessment: Patient denies pain at this time. ASSUMED CARE OF PT. PT SITTING IN BED. jj7 NO DISTRESS NOTED. STATES SHE HAS SUICIDAL IDEATION BUT NO PLAN, STATES SHE BELIEVES FROM ALL THE STRESS AND ANXIETY IS MAKING HER FEEL LIKE SHE DOES NOT WANT TO LOVE ANY MORE. VS STABLE. 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 NO FURTHER NEEDS.. 20:01 Reassessment: NURSE TO NURSE REPORT WITH CHANDLER JANSEN FROM [facility].jj7 21:44 Reassessment: NURSE TO NURSE REPORT GIVEN TO ROEL JANSEN AT [facility].. jj7 22:47 Reassessment: Patient is alert, oriented x 3, equal unlabored respirations, skin jj7 warm/dry/pink. PT RESTING COMFORTABLE IN BED. 22:55 Reassessment: REPORT GIVEN TO [facility]. jj7 23:26 Reassessment: PT BP LOW, NO DISTRESS NOTED. PT RESTING COMFORTABLY IN BED. KRISSY REYES jj7 INFORMED OF LOW BP. FLUID BOLUS ORDERED. 07/12 01:41 Reassessment: PT RESTING COMFORTABLY IN BED WITH HIS EYES CLOSED. NO DISTRESS NOTED VS jj7 STABLE. 03:00 Reassessment: PT RESTING COMFORTABLY IN BED.. jj7 04:12 Reassessment: PT UP TO USE RESTROOM. NO DISTRESS NOTED. NO NEEDS AT THIS TIME. SITTER vin AT BED DOOR OBSERVING PT. 05:29 Reassessment: NURSE TO NURSE REPORT TO RADHA FROM [facility]. jj7 06:16 Reassessment: PT LYING IN BED STATES SHE IS FEELING ANXIOUS AND OVERWHELMED. [id number] EMELINA INFORMED. MEDS ORDERED. 07:03 Reassessment: PT REPORT GIVEN TO ALMA JANSEN. jj7 07:45 Reassessment: No changes from previously documented assessment. ko1 09:18 Reassessment: [facility] here to transport patient. Patient is awake and alert, ko1 cooperative. Personal belongings given to EMS. Psych: 07/11 15:00 [place] Suicide Severity Screening: In the past month, have you wished you were ko1 or wished you could go to sleep and not wake up? Patient responds "yes." Based off the client's responses additional C-SSRS screening is required. "In the past month, have you actually had any thoughts of killing yourself?" Patient responds "no." Patient responds "yes." Based off the client's response additional [place] suicide severity screening questions to be further documented on paper forms. "In your lifetime, have you ever done anything, started to do anything, or prepared to do anything to end your life?". Subjective: Patient's mood is sad, Delusions are denied, Hallucinations are denied Having thoughts of suicide. Denies suicidal plan. Objective: Patient is cooperative, Speech is normal, Affect is flat. Patient uses tobacco 1 pack Frequency daily, Last use was 2 hours ago. 16:06 Interventions: Removed personal items and placed in bag. Patient placed in hospital ko1 gown. Searched person for dangerous items. Urine collected and sent for urine drug test. Belonging list filled out. Safety Checks: Personal items have been removed. Door is open. No visitors are present at this time. Sitter at bedside. 07/12 09:33 Commitment: Patient will be a voluntary commitment. Commitment papers completed. [facility] Vital Signs: 07/11 15:08 BP 124 / 83; Pulse 85; Pulse Ox 100% ; Weight 60.33 kg; Height 5 ft. 5 in. (165.10 cm); ko1 18:06 BP 109 / 80; Pulse Ox 95% ; ko1 19:45 BP 120 / 80; Pulse 60; Resp 17; Pulse Ox 100% ; j7 20:48 BP 119 / 74; Pulse 20; Resp 76; Pulse Ox 97% ; j7 21:59 BP 115 / 73; Pulse 74; Resp 17; Pulse Ox 98% ; j7 23:00 BP 83 / 50; Pulse 62; Resp 18; Pulse Ox 98% ; j7 07/12 00:04 BP 99 / 65; Pulse 61; Resp 20; Pulse Ox 98% ; j7 01:10 BP 105 / 64; Pulse 60; Resp 19; Pulse Ox 96% ; Pain 0/10; j7 02:13 BP 118 / 71; Pulse 72; Resp 19; Pulse Ox 96% ; j7 03:15 BP 102 / 71; Pulse 67; Resp 16; Pulse Ox 97% ; j7 06:25 Temp 98.8; mw2 09:00 BP 129 / 74; Pulse 78; Resp 16; Temp 98.0; Pulse Ox 99% ; Pain 0/10; ko1 07/11 15:08 Body Mass Index 22.13 (60.33 kg, 165.10 cm) ko1 ED Course: 07/11 14:15 Patient arrived in ED. iw 14:15 Alma Sheppard, RN is Primary Nurse. ko1 14:15 Nestor Mcnamara PA is PHCP. jmm 14:15 Sai Jack MD is Attending Physician. [facility] 14:35 Initial lab(s) drawn, by me, sent to lab. Inserted saline lock: 20 gauge in left jw7 antecubital area, using aseptic technique. Blood collected. 14:37 Acetaminophen Sent. jw7 14:37 Basic Metabolic Panel Sent. jw7 14:38 CT Head Brain wo Cont In Process Unspecified. EDMS 14:38 CBC with Diff Sent. jw7 14:38 ETOH Level Sent. jw7 14:38 Hepatic Function Sent. jw7 14:38 PT-INR Sent. jw7 14:38 Ptt, Activated Sent. jw7 14:38 Salicylate Sent. jw7 14:45 Arm band placed on right wrist. Patient placed in the treatment room, on cardiac ko1 monitor, on pulse oximetry, Patient notified of wait time. 15:00 Acetaminophen Sent. ko1 15:00 Basic Metabolic Panel Sent. ko1 15:00 ETOH Level Sent. ko1 15:00 Hepatic Function Sent. ko1 15:00 Salicylate Sent. ko1 15:00 Patient has correct armband on for positive identification. Bed in low position. Call ko1 light in reach. Side rails up X2. Pulse ox on. NIBP on. 15:36 Urine Drug Screen Sent. ko1 16:51 SARS RAPID Sent. ko1 18:02 Triage completed. ko1 18:58 faxed chart to [facility]. bd 19:15 faxed patient clinicals to [facility]. mw2 19:27 initiated a transfer with Julian from [facility]. [facility] denied due to mw2 capacity. 19:59 nurse to nurse at [facility]. mw2 20:16 [facility] called back to inform us that the patient does not mw2 meet their criteria. 20:54 faxed patient clinicals to all available psych facilities. mw2 21:32 nurse to nurse with Roel from [facility]. mw2 07/12 05:22 nurse to nurse with Radha from [facility]. mw2 07:25 [facility] gives AOC acceptance. Transportation arranged with [facility]. em1 09:00 No provider procedures requiring assistance completed. IV discontinued, intact, ko1 bleeding controlled, No redness/swelling at site. Pressure dressing applied. Administered Medications: 01:42 Discontinued: NS 0.9% 1000 ml IV at 1 bolus Per protocol; 1000 mL bolus j7 07/11 14:47 Drug: Keppra (levETIRAcetam) 1000 mg Route: IV; Rate: calculated rate; Site: right ko1 antecubital; 15:31 Drug: Ativan (LORazepam) 0.5 mg Route: IVP; Site: right antecubital; ko1 19:07 Drug: Lidocaine (1 %) 20 ml Volume: 20 ml; Route: Infiltration; ko1 19:07 Drug: Doxycycline 100 mg Route: PO; ko1 23:15 Drug: NS 0.9% 1000 ml Route: IV; Rate: 1 bolus; Site: right antecubital; jj7 07/12 06:15 Drug: Ativan (LORazepam) 1 mg Route: PO; Medication: 07/11 15:00 VIS not applicable for this client. ko1 Outcome: 07/12 07:25 ER care complete, transfer ordered by . clemente 09:00 Discharged to Psych facility ko1 09:00 Condition: stable 09:00 Discharge instructions given to EMS, Instructed on the need for transfer, Demonstrated understanding of instructions, follow-up care. 09:34 Patient left the ED. ko1 Signatures: Dispatcher [employer] EDMS Ilda Schaeffer Joel, PA PA Rosmery Cavazos, Alek Swartz RN em1 [place] mw2 Milvia Khalil7 Jc Vasquez MD MD jr11 Alma Sheppard RN RN ko1 Antoinette Rhoades RN RN jj7 Corrections: (The following items were deleted from the chart) 07/11 16:16 16:06 [place] Suicide Severity Screening: In the past month, have you wished you were ko1 or wished you could go to sleep and not wake up? Patient responds "yes." Based off the client's responses additional C-SSRS screening is required. "In the past month, have you actually had any thoughts of killing yourself?" Patient responds "no." Patient responds "yes." Based off the client's response additional [place] suicide severity screening questions to be further documented on paper forms. "In your lifetime, have you ever done anything, started to do anything, or prepared to do anything to end your life?" [facility] 16:16 16:06 Subjective: Patient's mood is sad, Delusions are denied, Hallucinations are ko1 denied Having thoughts of suicide. Denies suicidal plan. ko 16: 16:06 Objective: Patient is cooperative, Speech is normal, Affect is flat, ko1 ko1 16:16 16:06 Patient uses tobacco 1 pack Frequency daily, Last use was 2 hours ago. ko1 ko1
--- NOTE | 2022-07-12 08:29 | EKG ---
Test Date: 2022-07-11 Test Time: 14:22:08 Household Worker: ERIKA MEASUREMENT RESULTS: Intervals: Rate: 71 TN: 134 QRSD: 82 QT: 406 QTc: 441 [place]: P: 65 TN: 134 QRS: 37 T: 48 INTERPRETIVE STATEMENTS: Normal sinus rhythm Normal ECG Compared to ECG 06/22/2022 11:38:17 No significant changes Electronically Signed On 07-12-22 08:26:43 CDT by Mitch Hayden
[2022-07-13 16:21] VITALS: BP 129/74; TEMP 98; O2SAT 99
== END 2022-07-12 09:34 ==
LOC: ER 14:05
PROC: 0H9EXZZ Drainage of Left Lower Arm Skin, External Approach (ICD-10-PCS; principal; 2022-07-11)
DX: R45.851 Suicidal ideations (principal); L02.414 Cutaneous abscess of left upper limb; F17.210 Nicotine dependence, cigarettes, uncomplicated; Z20.822 Contact with and (suspected) exposure to COVID-19; Z88.8 Allergy status to other drugs, medicaments and biological substances
CPT/HCPCS: 93005; 85025; 80048; 36415; 80320; 80329 ×2; 85610; 80076; 85730; 81003; 80307; 70450; 96375; 96374; 99285; 87811; 10060; J1953; J7030 ×2; J7040